=== PATIENT | male | born 1985 | race Caucasian/White ===

== ENCOUNTER 2018-03-15 14:09 | Emergency (ER) | payer MEDICARE, MEDICAID ==
[~2018-03-15] VITALS: Ht 175.3 cm; Wt 120.0 kg
[~2018-03-15 14:09] MED LIST: IMD30T PO; NORCO10T PO; THO10T PO; VALP250C44 PO; ZIPR80CA2 PO
[2018-03-15 14:20] VITALS: BP 156/105
== END 2018-03-15 14:59 | disposition home or self-care (01) ==
LOC: ER 14:10
DX: M79.605 Pain in left leg (principal); M79.604 Pain in right leg; G89.29 Other chronic pain; Z56.0 Unemployment, unspecified; Z88.0 Allergy status to penicillin; Z79.899 Other long term (current) drug therapy
CPT/HCPCS: 99281

== ENCOUNTER 2018-09-21 18:43 | Emergency (ER) | payer MEDICARE, MEDICAID ==
[~2018-09-21] VITALS: Ht 175.3 cm; Wt 112.3 kg
[2018-09-21] MEDS ORDERED: LORazepam 1 MG tablet PO ONE (19:25)
[2018-09-21] MEDS ORDERED: DIVA-76 PO (19:44)
[2018-09-21] MEDS ORDERED: OMEP20TA23 PO (19:44)
[2018-09-21 19:45] LABS: BASOPHILS # (AUTO) 0.1 X10'3 (0-0.2); BASOPHILS % (AUTO) 0.7 % (0-1); EOSINOPHILS # (AUTO) 0.1 X10'3 (0-0.9); HEMATOCRIT 44.7 % (42.0-52.0); HEMOGLOBIN 14.6 g/dl (14.0-17.9); LYMPHOCYTES % (AUTO) 28.1 % (21-51); MEAN CORPUSCULAR HEMOGLOBIN 27.1 PG (27.0-31.0); MEAN CORPUSCULAR HGB CONC 32.7 % (33.0-36.5); MEAN CORPUSCULAR VOLUME 82.9 FL (78-98); MEAN PLATELET VOLUME 8.2 FL (7.4-10.4); MONOCYTES # (AUTO) 0.9 X10'3 (0-0.9); MONOCYTES % (AUTO) 8.4 % (2-12); NEUTROPHILS # (AUTO) 6.6 X10'3 (1.8-7.7); NEUTROPHILS % (AUTO) 61.8 % (42-75); PLATELET COUNT 273 X10'3 (140-440); RED BLOOD COUNT 5.39 X10'6 (4.70-6.10); RED CELL DISTRIBUTION WIDTH 15.6 % (11.5-14.5); WHITE BLOOD COUNT 10.8 X10'3 (4.5-11.0)
[2018-09-21] MEDS ORDERED: PROP60CA6 PO (19:46)
[2018-09-21] MEDS ORDERED: LISI5TAB PO (19:46)
[2018-09-21] MEDS ORDERED: LORA-269 PO (19:51)
[2018-09-21] MEDS ORDERED: LURA80TA3 PO (19:51)
[2018-09-21] MEDS ORDERED: ASPI81TA52 PO (19:51)
[2018-09-21] MEDS ORDERED: ALPR1TAB2 PO (19:51)
[2018-09-21 20:01] LABS: ALANINE AMINOTRANSFERASE 12 U/L (12-78); ALBUMIN 3.7 G/DL (3.4-5.0); ALBUMIN/GLOBULIN RATIO 1.1 (1.1-1.5); ALKALINE PHOSPHATASE 63 IU/L (46-116); ANION GAP 10 (8-16); ASPARTATE AMINO TRANSFERASE 11 U/L (10-37); BILIRUBIN,TOTAL 0.3 MG/DL (0.1-1.0); BLOOD UREA NITROGEN 10 MG/DL (7-18); BUN/CREATININE RATIO 8.8 (5.4-32.0); CALCIUM 8.8 MG/DL (8.5-10.1); CHLORIDE 105 MMOL/L (99-107); CREATININE 1.13 MG/DL (0.60-1.10); GLUCOSE 112 MG/DL (70-104); POTASSIUM 4.1 MMOL/L (3.5-5.1); SODIUM 141 MMOL/L (135-145); TOTAL CARBON DIOXIDE 26.1 MMOL/L (24-32); TOTAL PROTEIN 7.1 G/DL (6.4-8.2); eGFR 76 ML/MIN
[2018-09-21 20:05] LABS: URINE AMPHETAMINE SCREEN NEGATIVE (Neg); URINE BARBITUATE SCREEN NEGATIVE (Neg); URINE BENZODIAZEPINES SCREEN POSITIVE (Neg); URINE CANNABINOID SCREEN POSITIVE (Neg); URINE COCAINE SCREEN NEGATIVE (Neg); URINE METHADONE SCREEN NEGATIVE (Neg); URINE OPIATE SCREEN NEGATIVE (Neg); URINE PHENCYCLIDINE SCREEN NEGATIVE (Neg)
[2018-09-21 20:06] LABS: ETHANOL < 0.010 GM/DL (0.0-0.010)
[2018-09-21 20:25] LABS: ACETAMINOPHEN < 2.0 UG/ML (10-30)
[2018-09-22] MEDS ORDERED: nicotine 21mg patch - 24 hr TD ONE (00:40)
[2018-09-22] MEDS ORDERED: ziprasidone IM 20mg inj **IM only IM ONE (00:40)
[2018-09-22] MEDS ORDERED: pantoprazole 40mg Tablet.DR PO SCH (07:45)
[2018-09-22] MEDS ORDERED: divalproex sodium 500mg tablet.DR PO SCH (08:00)
[2018-09-22] MEDS ORDERED: propranolol LA 60 MG cap.SA.24H PO SCH (08:00)
[2018-09-22] MEDS ORDERED: aspirin 81mg tablet.DR PO SCH (08:00)
[2018-09-22] MEDS ORDERED: lisinopril 5mg tablet PO SCH (08:00)
[2018-09-22] MEDS ORDERED: LORazepam 1 MG tablet PO SCH (08:00)
[2018-09-22] MEDS: ALPRAZolam 0.5mg tablet PO PRN ×2 (08:50→15:58)
[2018-09-22] MEDS ORDERED: DOCU250C4 PO (12:04)
[2018-09-22] MEDS ORDERED: PALI234D IM (12:10)
[2018-09-22 13:54] VITALS: BP 148/85
[2018-09-22] MEDS ORDERED: paliperidone palmitate inj 234 MG/1.5 ML SYRINGE IM SCH (14:30)
[2018-09-22] MEDS ORDERED: docusate sod 250mg capsule PO SCH (20:00)
[2018-09-22] MEDS ORDERED: lurasidone 20mg tablet PO SCH (21:00)
== END 2018-09-22 16:17 ==
LOC: ER 18:44
DX: F20.9 Schizophrenia, unspecified (principal); F31.9 Bipolar disorder, unspecified; G89.29 Other chronic pain; F41.9 Anxiety disorder, unspecified; Z56.0 Unemployment, unspecified; Z88.0 Allergy status to penicillin; Z79.899 Other long term (current) drug therapy; Z79.82 Long term (current) use of aspirin
CPT/HCPCS: 36415; 80053; 80164; 80305; 80320; 80329; 84443; 85025; 93005; 99285

== ENCOUNTER 2019-05-13 22:12 | Emergency (ER) | payer MEDICARE, MEDICAID ==
[~2019-05-13] VITALS: Ht 175.3 cm; Wt 105.5 kg
[~2019-05-13 22:12] MED LIST changes: +ALPR1TAB2 PO; +ASPI81TA52 PO; +DIVA-76 PO; +DOCU-329 PO; -IMD30T PO; +LURA80TA3 PO; -NORCO10T PO; +OMEP20TA23 PO; +PALI234D IM; +PROP60CA37 PO; -THO10T PO; -VALP250C44 PO; -ZIPR80CA2 PO
[2019-05-13 22:19] VITALS: BP 151/100
[2019-05-14] MEDS ORDERED: TETanus/Pertussis (Acell)/Diphther VAC/PF (Tdap-Adult) 0.5ml syringe IM ONE (00:35)
== END 2019-05-14 01:01 | disposition home or self-care (01) ==
LOC: ER 22:13
DX: S02.2XXA Fracture of nasal bones, initial encounter for closed fracture (principal); G89.29 Other chronic pain; F31.9 Bipolar disorder, unspecified; F20.9 Schizophrenia, unspecified; F12.90 Cannabis use, unspecified, uncomplicated; Z88.0 Allergy status to penicillin; Z79.82 Long term (current) use of aspirin; Z79.899 Other long term (current) drug therapy; Z56.0 Unemployment, unspecified; W21.05XA Struck by basketball, initial encounter; Y93.67 Activity, basketball; Y92.89 Other specified places as the place of occurrence of the external cause; Y99.8 Other external cause status
CPT/HCPCS: 99281

== ENCOUNTER 2019-07-31 11:50 | Emergency (ER) | payer MEDICARE, MEDICAID ==
[~2019-07-31] VITALS: Ht 175.3 cm; Wt 107.0 kg
--- NOTE | 2019-07-31 12:02 | NUR ---
AMBULATORY TO ER #2 WITH C/O ABD PAIN X 3 DAYS AND BLOOD IN STOOL. STATES HX ABDOMINAL PAIN AND CHANGES IN STOOL PATTERN FOR THE PAST FEW MONTHS, WITH CONSTIPATION. WORRIED THAT HE MAY HAVE AN ULCER. HX SENSITIVE STOMACH.
[2019-07-31 13:00] LABS: BASOPHILS % (AUTO) 0.5 % (0-1); EOSINOPHILS # (AUTO) 0.1 X10'3 (0-0.9); EOSINOPHILS % (AUTO) 0.9 % (0-6); HEMATOCRIT 44.1 % (42.0-52.0); HEMOGLOBIN 15.1 g/dl (14.0-17.9); LYMPHOCYTES # (AUTO) 2.4 X10'3 (1.1-4.8); LYMPHOCYTES % (AUTO) 27.1 % (21-51); MEAN CORPUSCULAR HEMOGLOBIN 29.7 PG (27.0-31.0); MEAN CORPUSCULAR HGB CONC 34.2 g/dL (33.0-36.5); MEAN CORPUSCULAR VOLUME 86.8 FL (78-98); MEAN PLATELET VOLUME 8.4 FL (7.4-10.4); MONOCYTES # (AUTO) 0.8 X10'3 (0-0.9); MONOCYTES % (AUTO) 8.5 % (2-12); NEUTROPHILS # (AUTO) 5.6 X10'3 (1.8-7.7); PLATELET COUNT 199 X10'3 (140-440); RED BLOOD COUNT 5.08 X10'6 (4.70-6.10); RED CELL DISTRIBUTION WIDTH 14.6 % (11.5-14.5); WHITE BLOOD COUNT 8.9 X10'3 (4.5-11.0)
[2019-07-31 13:24] LABS: ALANINE AMINOTRANSFERASE 17 U/L (12-78); ALBUMIN 3.7 G/DL (3.4-5.0); ALBUMIN/GLOBULIN RATIO 1.1 (1.1-1.5); ALKALINE PHOSPHATASE 56 IU/L (46-116); ANION GAP 11 (8-16); ASPARTATE AMINO TRANSFERASE 6 U/L (10-37); BILIRUBIN,TOTAL 0.3 MG/DL (0.1-1.0); BLOOD UREA NITROGEN 7 MG/DL (7-18); BUN/CREATININE RATIO 7.5 (5.4-32.0); CALCIUM 8.6 MG/DL (8.5-10.1); CHLORIDE 107 MMOL/L (99-107); CREATININE 0.93 MG/DL (0.60-1.10); GLUCOSE 93 MG/DL (70-104); POTASSIUM 4.1 MMOL/L (3.5-5.1); SODIUM 142 MMOL/L (135-145); TOTAL CARBON DIOXIDE 24.2 MMOL/L (24-32); TOTAL PROTEIN 7.1 G/DL (6.4-8.2); eGFR > 90 ML/MIN
[2019-07-31] MEDS ORDERED: POLY17PO10 PO (13:31)
[2019-07-31 13:41] VITALS: BP 141/48
== END 2019-07-31 13:43 | disposition home or self-care (01) ==
LOC: ER 11:51
DX: K92.1 Melena (principal); G89.29 Other chronic pain; F31.9 Bipolar disorder, unspecified; F20.9 Schizophrenia, unspecified; F12.90 Cannabis use, unspecified, uncomplicated; Z56.0 Unemployment, unspecified; Z88.0 Allergy status to penicillin; Z79.82 Long term (current) use of aspirin; Z79.899 Other long term (current) drug therapy
CPT/HCPCS: 36415; 80053; 85025; 99283

== ENCOUNTER 2020-04-07 16:35 | Emergency (ER) | payer MEDICARE, MEDICAID ==
[~2020-04-07] VITALS: Ht 175.3 cm; Wt 108.0 kg
[2020-04-07 17:01] VITALS: BP 133/91
[2020-04-07] MEDS ORDERED: AZIT-72 PO (17:35)
== END 2020-04-07 17:57 | disposition home or self-care (01) ==
LOC: ER 16:36
DX: R59.0 Localized enlarged lymph nodes (principal); G89.29 Other chronic pain; F31.9 Bipolar disorder, unspecified; F20.9 Schizophrenia, unspecified; F17.200 Nicotine dependence, unspecified, uncomplicated; F12.90 Cannabis use, unspecified, uncomplicated; Z72.89 Other problems related to lifestyle; Z86.69 Personal history of other diseases of the nervous system and sense organs; Z56.0 Unemployment, unspecified; Z88.0 Allergy status to penicillin; Z79.2 Long term (current) use of antibiotics; Z79.82 Long term (current) use of aspirin; Z79.899 Other long term (current) drug therapy
CPT/HCPCS: 99283

== ENCOUNTER 2020-05-05 10:55 | Emergency (ER) | payer MEDICARE, MEDICAID ==
[~2020-05-05] VITALS: Ht 175.3 cm; Wt 102.6 kg
--- NOTE | 2020-05-05 11:09 | NUR ---
Pt brought in as a straight back from triage. He is mumbling to himself. He lives with his mother at [facility]. His mother and step mom briought him in. He sees Michelle White at [facility]. He reports not taking all of huis medications as prescribed recently. Pt hurt his wrist by hitting his hand on a fence recently. Pt is unable to stay on topic in a converstation. He seems to be responding to internal stimuli due to carrying on a constant conversation with himself. He claims to speak to animals and understand their language.
[2020-05-05 12:05] LABS: CLARITY,URINE CLEAR (Clear); COLOR,URINE YELLOW (Yellow); GLUCOSE, URINE NEGATIVE (Neg); KETONES,URINE 15 mg/dl (Neg); LEUKOCYTE ESTERASE ,URINE NEGATIVE (Neg); NITRITES, URINE NEGATIVE (Neg); OCCULT BLOOD,URINE NEGATIVE (Neg); PROTEIN,URINE TRACE mg/dl (Neg)
[2020-05-05] MEDS ORDERED: ALPRAZolam 0.5mg tablet PO PRN (12:05)
[2020-05-05 12:09] LABS: AMORPHOUS URATES 1+; BACTERIA,URINE NONE SEEN /HPF (Neg); MUCUS STRANDS FEW /LPF (Neg); RBC,URINE 0-2 /HPF (0-2); SQUAMOUS EPITHELIAL CELL,UR NONE SEEN /LPF (FEW); UA COLLECTION TYPE NON-SPECIFIED; WBC,URINE 0-4 /HPF (0-4)
--- NOTE | 2020-05-05 12:14 | NUR ---
Lab at bedside
[2020-05-05] MEDS: propranolol LA 60 MG cap.SA.24H PO SCH (12:16)
[2020-05-05 12:24] LABS: BASOPHILS % (AUTO) 0.5 % (0-1); EOSINOPHILS % (AUTO) 0.2 % (0-6); HEMATOCRIT 42.5 % (42.0-52.0); HEMOGLOBIN 14.3 g/dl (14.0-17.9); LYMPHOCYTES # (AUTO) 2.5 X10'3 (1.1-4.8); LYMPHOCYTES % (AUTO) 26.9 % (21-51); MEAN CORPUSCULAR HEMOGLOBIN 29.8 PG (27.0-31.0); MEAN CORPUSCULAR HGB CONC 33.7 g/dL (33.0-36.5); MEAN CORPUSCULAR VOLUME 88.4 FL (78-98); MEAN PLATELET VOLUME 8.4 FL (7.4-10.4); MONOCYTES # (AUTO) 0.8 X10'3 (0-0.9); MONOCYTES % (AUTO) 8.6 % (2-12); NEUTROPHILS # (AUTO) 5.9 X10'3 (1.8-7.7); NEUTROPHILS % (AUTO) 63.8 % (42-75); PLATELET COUNT 222 X10'3 (140-440); RED CELL DISTRIBUTION WIDTH 14.7 % (11.5-14.5); WHITE BLOOD COUNT 9.3 X10'3 (4.5-11.0)
[2020-05-05 12:27] LABS: URINE AMPHETAMINE SCREEN NEGATIVE (Neg); URINE BARBITUATE SCREEN NEGATIVE (Neg); URINE BENZODIAZEPINES SCREEN POSITIVE (Neg); URINE CANNABINOID SCREEN POSITIVE (Neg); URINE COCAINE SCREEN NEGATIVE (Neg); URINE METHADONE SCREEN NEGATIVE (Neg); URINE OPIATE SCREEN NEGATIVE (Neg); URINE PHENCYCLIDINE SCREEN NEGATIVE (Neg)
[2020-05-05 12:38] LABS: ALANINE AMINOTRANSFERASE 38 U/L (12-78); ALBUMIN 4.3 G/DL (3.4-5.0); ALBUMIN/GLOBULIN RATIO 1.2 (1.1-1.5); ALKALINE PHOSPHATASE 60 IU/L (46-116); ANION GAP 11 (8-16); ASPARTATE AMINO TRANSFERASE 59 U/L (10-37); BILIRUBIN,TOTAL 0.7 MG/DL (0.1-1.0); BLOOD UREA NITROGEN 16 MG/DL (7-18); CALCIUM 9.1 MG/DL (8.5-10.1); CHLORIDE 105 MMOL/L (99-107); CREATININE 1.07 MG/DL (0.60-1.10); GLUCOSE 101 MG/DL (70-104); POTASSIUM 4.2 MMOL/L (3.5-5.1); SODIUM 140 MMOL/L (135-145); TOTAL CARBON DIOXIDE 24.1 MMOL/L (24-32); TOTAL PROTEIN 7.8 G/DL (6.4-8.2); eGFR 80 ML/MIN
--- NOTE | 2020-05-05 12:48 | NUR ---
Pt very anxious as evidened by rapid, pressured, loud speech. Pt given xanax and he said "Thank you for the clam down pills."
[2020-05-05 12:51] LABS: ETHANOL < 0.010 GM/DL (0.0-0.010)
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
--- NOTE | 2020-05-05 13:34 | NUR ---
Antoinette stephen in [facility] - 05/05/20 at 1342 by MARTIN CLIENT OFF THE UNIT WITH [employer]
--- NOTE | 2020-05-05 14:42 | NUR ---
Paged for ortho orders for client
--- NOTE | 2020-05-05 16:07 | NUR ---
Patient talking nonstop, rapid, presurred, loud speech. Patient stating they should outlaw applesauce. "If people can't eat apples because of their teeth it is not fair to smash apples."
--- NOTE | 2020-05-05 16:34 | NUR ---
pt mother called regarding update ,notified he is still in overflow ,pt mother no [phone].
--- NOTE | 2020-05-05 17:18 | NUR ---
Pt quietly talking to himself nonstop
[2020-05-05 17:57] VITALS: BP 134/87
--- NOTE | 2020-05-05 18:12 | NUR ---
Paged for ortho orders
[2020-05-05] MEDS ORDERED: OLANZapine 5mg rapidly disint. tablet PO ONE (19:25)
[2020-05-05] MEDS ORDERED: OLANZapine **IM** 10 mg inj. IM ONE ×2 (19:31→19:40)
--- NOTE | 2020-05-05 19:39 | NUR ---
Pt. continues to respond to internal stimuli, making delusional hyperspiritual statements about god saving him and becoming a preacher to the world. He is also fearing being sent to [place]. Pt. is hypervigilant and looking at posters and numbers on the preciado, claiming that he's in the "wrong place." He is also demonstrating flight of ideas, asking for a audit intern or to be taken to half-way. When asked if he requires medication to calm him down, he started to become argumentative and speaking very loudly. ER MD is aware of pt being psychotic. MD was updated on current escalated state and order received to change ordered zyprexa SL to IM. Security at bedside right now to ensure staff and other pt's safety. IM medication succesfully administered with pt's cooperation.
[2020-05-05] MEDS ORDERED: acetaminophen 325mg tablet PO PRN ×2 (19:45→19:50)
[2020-05-05] MEDS ORDERED: magnesium hydroxide 30ml (MOM) UD suspension PO PRN (19:50)
[2020-05-05] MEDS ORDERED: docusate sod 250mg capsule PO SCH (20:00)
[2020-05-05] MEDS ORDERED: divalproex sodium 500mg tablet.DR PO SCH (20:00)
[2020-05-05] MEDS ORDERED: lurasidone 20mg tablet PO SCH (21:00)
--- NOTE | 2020-05-05 21:02 | NUR ---
emergency technician at bedside applying ordered splint to L hand. Pt. is cooperative and pleasant.
[2020-05-06] MEDS ORDERED: pantoprazole 40mg Tablet.DR PO SCH (08:00)
[2020-05-08] MEDS ORDERED: paliperidone palmitate inj 234 MG/1.5 ML SYRINGE IM SCH (08:00)
== END 2020-05-05 20:14 ==
LOC: ER 10:57
DX: F41.9 Anxiety disorder, unspecified (principal); G89.29 Other chronic pain; F31.9 Bipolar disorder, unspecified; F20.9 Schizophrenia, unspecified; F12.90 Cannabis use, unspecified, uncomplicated; Z86.69 Personal history of other diseases of the nervous system and sense organs; Z72.89 Other problems related to lifestyle; Z56.0 Unemployment, unspecified; Z88.0 Allergy status to penicillin; Z79.82 Long term (current) use of aspirin; Z79.899 Other long term (current) drug therapy
CPT/HCPCS: 36415; 73130; 80053; 80305; 80320; 81001; 84443; 85025; 96372; 99284; J3490

== ENCOUNTER 2020-06-03 19:00 | Emergency (ER) | payer MEDICARE, MEDICAID ==
[~2020-06-03] VITALS: Ht 175.3 cm; Wt 108.6 kg
[~2020-06-03 19:00] MED LIST changes: +CLOZ100T13 PO; -DOCU-329 PO; +DOCU250C96 PO; -LURA80TA3 PO; +OLAN20TA5 PO; -OMEP20TA23 PO; -PALI234D IM; +PANT40TA4 PO; +TIZA4CAP PO; +[UNRECOGNIZED DRUG - CODE] PO
[2020-06-03] MEDS ORDERED: LORazepam 1 MG tablet PO ONE (19:45)
--- NOTE | 2020-06-03 19:50 | NUR ---
PT REPORTS THAT HE DOES NOT WANT TO CAUSE HIMSELF HARM OR OTHERS HARM STAES HE IS ONLY HAVING AUDITORY HALLUSINATIONS AND THE VOICES ARE HIMSELF . HE SAYS ITS HIS OWN VOCIE TALKING TO HIMSELF , ASKING HIM TO WAK AND TAKING TO HIM ABOUT GOD AND RELEGION . PT DENIES TAKING ANY MEDICATION ASIDE FROM A SUPPLEMENT HE HAS BROUGHT WITH HIM CALLED " KRAVE " Maribell Wilder
--- NOTE | 2020-06-03 20:01 | NUR ---
PT CHANGED INTO [place]
[2020-06-03 20:16] LABS: URINE AMPHETAMINE SCREEN NEGATIVE (Neg); URINE BARBITUATE SCREEN NEGATIVE (Neg); URINE BENZODIAZEPINES SCREEN POSITIVE (Neg); URINE CANNABINOID SCREEN POSITIVE (Neg); URINE COCAINE SCREEN NEGATIVE (Neg); URINE METHADONE SCREEN NEGATIVE (Neg); URINE OPIATE SCREEN NEGATIVE (Neg); URINE PHENCYCLIDINE SCREEN NEGATIVE (Neg)
[2020-06-03 20:23] LABS: BASOPHILS % (AUTO) 0.3 % (0-1); EOSINOPHILS % (AUTO) 0.3 % (0-6); HEMATOCRIT 44.1 % (42.0-52.0); HEMOGLOBIN 14.6 g/dl (14.0-17.9); LYMPHOCYTES % (AUTO) 24.6 % (21-51); MEAN CORPUSCULAR HEMOGLOBIN 29.3 PG (27.0-31.0); MEAN CORPUSCULAR HGB CONC 33.2 g/dL (33.0-36.5); MEAN CORPUSCULAR VOLUME 88.4 FL (78-98); MEAN PLATELET VOLUME 9.4 FL (7.4-10.4); MONOCYTES # (AUTO) 1.7 X10'3 (0-0.9); MONOCYTES % (AUTO) 14.3 % (2-12); NEUTROPHILS # (AUTO) 7.4 X10'3 (1.8-7.7); NEUTROPHILS % (AUTO) 60.5 % (42-75); PLATELET COUNT 222 X10'3 (140-440); RED BLOOD COUNT 4.99 X10'6 (4.70-6.10); RED CELL DISTRIBUTION WIDTH 14.3 % (11.5-14.5); WHITE BLOOD COUNT 12.2 X10'3 (4.5-11.0)
[2020-06-03 20:38] LABS: ALANINE AMINOTRANSFERASE 42 U/L (12-78); ALBUMIN 4.4 G/DL (3.4-5.0); ALBUMIN/GLOBULIN RATIO 1.3 (1.1-1.5); ALKALINE PHOSPHATASE 64 IU/L (46-116); ANION GAP 14 (8-16); ASPARTATE AMINO TRANSFERASE 97 U/L (10-37); BILIRUBIN,TOTAL 0.4 MG/DL (0.1-1.0); BLOOD UREA NITROGEN 17 MG/DL (7-18); BUN/CREATININE RATIO 8.8 (5.4-32.0); CALCIUM 9.6 MG/DL (8.5-10.1); CHLORIDE 100 MMOL/L (99-107); CREATININE 1.94 MG/DL (0.60-1.10); GLUCOSE 95 MG/DL (70-104); POTASSIUM 3.2 MMOL/L (3.5-5.1); SODIUM 137 MMOL/L (135-145); TOTAL CARBON DIOXIDE 23.2 MMOL/L (24-32); TOTAL PROTEIN 7.8 G/DL (6.4-8.2); eGFR 40 ML/MIN
--- NOTE | 2020-06-03 20:40 | NUR ---
PT MOVED TO ROOM 23 STEADY GAIT
[2020-06-03 20:43] LABS: ETHANOL < 0.010 GM/DL (0.0-0.010)
--- NOTE | 2020-06-03 20:43 | NUR ---
pt was moved from room 9 in the main ER to room 23 in overflow, by two RN's no issues during transport
[2020-06-03] MEDS ORDERED: normal saline 1000ML IV soln IVB ONE (20:50)
--- NOTE | 2020-06-03 21:01 | NUR ---
moved to overflow bed 23 from main er bed 9. report received from cipriano hopkins.
--- NOTE | 2020-06-03 21:27 | NUR ---
PIV PLACED, 1ST OF 2 LITERS BOLUS STARTED, CKMB ELEVATED. PT WAS COOPERATIVE WITH IV PLACEMENT. HE IS RESPONDING TO INTERNAL STIMULI AND TALKING NONSTOP QUIETLY TO HIMSELF. ANSWERING MY QUESTIONS APPROPRIATELY: WHERE DO YOU LIVE, "SUDHIR...IN A MOBILE HOME ...ON MY MOMS PROPERTY". STATES HE HAS A KITTEN NAMED "ULISES" AND HIS MOTHER IS TAKING CARE OF IT. HAVE YOU BEEN HERE BEFORE, "YES". GIVEN JUICE AND SANDWICH AND CRACKERS AND IS EATING NOW.
--- NOTE | 2020-06-03 21:39 | NUR ---
LUZMA BHATTI UPDATED OF PTS K 3.2 AND THAT HE IS RESTLESS AND TALKLING BIZZARLY TO HIMSELF. VERBAL RECEIVED FOR KDUR 40 MEQ PO AND CLOZAPINE 300 MG X1NOW. UNABLE TO DO MED REC PT DOES NOT KNOW HIS CURRENT HOME MEDS. LUZMA BHATTI REPORTS THAT A NOTE FROM DR. COLLIER FROM A FEW MONTHS AGO WHEN HE WAS ADMITTED HE WAS TAKING THIS DOSE OF CLOZAPINE.
[2020-06-03] MEDS ORDERED: potassium Cl 20 mEq SR tablet PO STA (21:41)
[2020-06-03] MEDS ORDERED: OLANZapine 5mg rapidly disint. tablet PO ONE (22:20)
--- NOTE | 2020-06-03 23:07 | NUR ---
Breaking primary RN. Pt. resting quietly, no signs of distress, respirations even and unlabored.
--- NOTE | 2020-06-03 23:14 | NUR ---
2 liter bolus infused. given kdur 40 meq and zypreza 10 mg. lab redraw just collected. Lights off and warm blanket given. Pt lying on right side with blanket to his shoulders. RR f14 and unlabored. Sitter and RN within view of Pt aat.
[2020-06-03 23:20] LABS: ALBUMIN 3.4 G/DL (3.4-5.0); ANION GAP 10 (8-16); BLOOD UREA NITROGEN 17 MG/DL (7-18); BUN/CREATININE RATIO 12.4 (5.4-32.0); CALCIUM 8.1 MG/DL (8.5-10.1); CHLORIDE 106 MMOL/L (99-107); CREATININE 1.37 MG/DL (0.60-1.10); GLUCOSE 128 MG/DL (70-104); POTASSIUM 3.1 MMOL/L (3.5-5.1); SODIUM 140 MMOL/L (135-145); TOTAL CARBON DIOXIDE 23.8 MMOL/L (24-32); eGFR 60 ML/MIN
--- NOTE | 2020-06-04 00:54 | NUR ---
Pt remains asleep. Currently lying on his left side with blankets covering to his shoulders. RR 14 and unlabored. Sitter and RN within view of pt aat. Pt did eat a 2nd sandwich and drink another cup of orange juice a while ago. Bedside table cleaned of trash.
--- NOTE | 2020-06-04 02:31 | NUR ---
pt remains asleep, lying on his back with blankets to his waist. Sitter and RN within view of Pt aat.
--- NOTE | 2020-06-04 04:20 | NUR ---
Pt remains asleep, lying on his right side with blankets covering his shoulders. RR 14 and unlabored. Sitter and RN within view of Pt AAT.
--- NOTE | 2020-06-04 07:21 | NUR ---
Resting in bed with eyes closed
[2020-06-04] MEDS ORDERED: potassium Cl 20 mEq SR tablet PO SCH (08:00)
--- NOTE | 2020-06-04 09:34 | NUR ---
Breaking Primary RN, pt is being seen by [facility] staff, calm
[2020-06-04] MEDS ORDERED: PANT-47 PO (10:26)
[2020-06-04] MEDS ORDERED: DOCU250C96 PO (10:26)
[2020-06-04] MEDS ORDERED: OLAN20TA3 PO (10:26)
[2020-06-04] MEDS ORDERED: CLOZ100T21 PO ×2 (10:26)
[2020-06-04] MEDS ORDERED: PROP60CA37 PO (10:26)
[2020-06-04] MEDS ORDERED: TIZA4CAP PO (10:26)
[2020-06-04] MEDS ORDERED: ASPI-1265 PO (10:26)
[2020-06-04] MEDS ORDERED: ALPR1TAB2 PO (10:26)
[2020-06-04] MEDS ORDERED: DIVA500T2 PO (10:26)
[2020-06-04] MEDS: clozapine 100mg tablet PO SCH ×2 (11:17→21:05)
[2020-06-04] MEDS: propranolol LA 60 MG cap.SA.24H PO SCH (11:18)
[2020-06-04] MEDS: pantoprazole 40mg Tablet.DR PO SCH (11:46)
[2020-06-04] MEDS: olanzapine 10mg tablet PO PRN (11:46)
[2020-06-04] MEDS: aspirin 81mg tab.chew PO SCH (11:47)
[2020-06-04] MEDS: ALPRAZolam 0.5mg tablet PO PRN ×2 (11:47→20:34)
[2020-06-04] MEDS: tizanidine 4mg tablet PO PRN (17:14)
--- NOTE | 2020-06-04 17:15 | NUR ---
Break RN; patient states he has muscle cramps in stomach, medicated PRN (see EMAR).
--- NOTE | 2020-06-04 18:39 | NUR ---
ASSUMED CARE OF PATIENT SITTING UPRIGHT IN BED EATING DINNER . PT DNEIES ANY ABD DISCOMFORT AT THIS TIME AND IS COROPORATIVE. PT IN THE DIRECT LINE OF SIGHT WITH NURSING STAFF . WILL CONTINUE TO REASSESS.
--- NOTE | 2020-06-04 18:53 | NUR ---
PT UP OUT OF BED TO BATHROOM . AMBULATED WITH STEADY GATE .
--- NOTE | 2020-06-04 19:18 | NUR ---
PT ASKED IF HE COULD HAVE SOME READING MATERIAL TO HELP HIM . STATES HE IS TALKING TO HIMSELF AND SOMETHING TO LOOK AT OR READ WOULD BE HELPFUL .PT GIVEN A NATIONAL MOUNUMENT BACK . PLAN OF CARE UPDATED . PT VERBLAIZES NO OTHER NEEDS AT THIS TIME
--- NOTE | 2020-06-04 19:41 | NUR ---
PT RESTING ON HIS RIGHT SIDE . RESP EVEN AND UNLABORED WUILL CONTINUE TO MONITOR AND REASSESS
--- NOTE | 2020-06-04 20:28 | NUR ---
PT TALKING TO HIMSELF AND MOVING HIS ARMS AROUND LIKE HE IS HALLUSINATING. ASKED THE PATIENT IF HE WAS ALRIGHT AND HE REPLIED " YES , I AM SAFE, I AM HERE IN THE HOSPITAL " ADMINISTERED PATIENTS 2000 MEDICATION AND ADVISED PATIENT TO GET READY FOR BED
[2020-06-04] MEDS: divalproex sodium 500mg tablet.DR PO SCH (20:34)
[2020-06-04] MEDS: docusate sod 250mg capsule PO SCH (20:34)
--- NOTE | 2020-06-04 21:38 | NUR ---
PT SLEEPING ON LEFT SIDE RESP EVEN AND UNLABORED IN THE DIRECT LINE OF SIGHT OF NURSING STAFF. WILL CONTINUE TO MONITOR AND REASSESS
--- NOTE | 2020-06-04 22:30 | NUR ---
PT SLEEPING PEACFULLY ON HIS LEFT SIDE . RESP EVEN AND UNLABORED. PT IN THE DIRECT LINEOF SIGHT WITH NURSING STAFF. WILL CONTINUE TO MONIOTR AND REASSESS NEEDED
--- NOTE | 2020-06-04 23:55 | NUR ---
Breaking primary RN, pt. resting quietly, no signs of distress, respirations even and unlabored.
--- NOTE | 2020-06-05 01:00 | NUR ---
PT SLEEPING PEACFULLY SUSPINE . RESP EVEN AND UNLABORED. PT IN THE DIRECT LINE OF SIGHT OF NURSING STAFF. WILL CONTINUE TO MONITOR R AND REASSESS NEEDED
--- NOTE | 2020-06-05 02:00 | NUR ---
PT SLEEPING PEACFULLY SUPINE . RESP EVEN AND UNLABORED. PT IN THE DIRECT LINE OF SIGHT OF NURSING STAFF. WILL CONTINUE TO MONITOR AND REASSESS NEEDED
[2020-06-05] MEDS: tizanidine 4mg tablet PO PRN ×2 (03:57→14:45)
--- NOTE | 2020-06-05 04:00 | NUR ---
PT AWAKE AND OUT OF BED TO BATHROOM . STEADY GAIT . REPORTS HE IS HUNGRY , GAVE GRAMCRACKERS. PT REPORTS HE IS HAVING MUSCLE DISCOMFORT BEFORE . WOULD LIKE TO TAKE SOMETHING FOR IT . MEDICATED PT WITH 4MG OF ZANALEX ORDERED
--- NOTE | 2020-06-05 04:53 | NUR ---
PT SLEEPING ON HIS RIGHT SIDE IN BED . HOB ELEVATED 30 DEGREES RESP EVEN AND UNLABORED . PT CONTENT AT THIS TIME
--- NOTE | 2020-06-05 05:58 | NUR ---
PT AUROSABLE WITH VS. PLAN OF CARE UPDATED . PLEASANT FOLLOWING INSTRUCTIONS . POLITE .
--- NOTE | 2020-06-05 06:44 | NUR ---
Patient is sleeping on his right side. Respirations are even and nonlabored.
--- NOTE | 2020-06-05 06:45 | NUR ---
Patient laying in bed sleeping. Respirations are even and nonlabored.
[2020-06-05] MEDS: clozapine 100mg tablet PO SCH ×2 (08:37→20:16)
[2020-06-05] MEDS: pantoprazole 40mg Tablet.DR PO SCH (08:38)
[2020-06-05] MEDS: aspirin 81mg tab.chew PO SCH (08:38)
[2020-06-05] MEDS: propranolol LA 60 MG cap.SA.24H PO SCH (08:39)
[2020-06-05] MEDS: divalproex sodium 500mg tablet.DR PO SCH ×2 (08:39→20:16)
[2020-06-05] MEDS: docusate sod 250mg capsule PO SCH ×2 (08:46→20:16)
--- NOTE | 2020-06-05 09:22 | NUR ---
Patient took all medications without incident, ate breakfast and then back to sleep.
--- NOTE | 2020-06-05 11:03 | NUR ---
Patient up to the bathroom
--- NOTE | 2020-06-05 12:58 | NUR ---
Patient is eating lunch. No behavioral problems this shift. Pleasant and cooperative.
--- NOTE | 2020-06-05 14:59 | NUR ---
Patient complaining of back pain. Zanaflex given, suggested patient try changing positions and stretching.
[2020-06-05] MEDS: olanzapine 10mg tablet PO PRN (15:44)
--- NOTE | 2020-06-05 16:31 | NUR ---
Patient laying in bed talking to himself, responding to internal stimuli. Awaiting call back from [facility].
--- NOTE | 2020-06-05 16:56 | NUR ---
Patient has been accepted at [facility] and will be picked up by [facility] at 0715 a.m. tomorrow morning.
--- NOTE | 2020-06-05 17:07 | NUR ---
Patient up to the restroom.
[2020-06-05] MEDS: ALPRAZolam 0.5mg tablet PO PRN (17:32)
--- NOTE | 2020-06-05 17:48 | NUR ---
Patient started escalating and becoming agitated, Xanax 1 mg given with good effect.
--- NOTE | 2020-06-05 18:55 | NUR ---
Covid screen faxed to [facility].
--- NOTE | 2020-06-05 19:06 | NUR ---
The patient has been resting on his bed. He is quietly talking to himself but denies that he is having auditory or visual hallucinations. He ate 100% of his dinner. He was polite and cooperative with the nursing assessment. He stated "No one brought me here I walked here. I tried to walk out my anger. I thought if I walked I could walk off my illness so I walked for 3 days" He denies that he is a danger to himself or others. He stated he did not want to return to [place] because he felt it was "evil" He denies phyiscal complaints. He is asking to be re-admitted to [facility] but he has already been accepted at another facility.
--- NOTE | 2020-06-05 21:04 | NUR ---
The patient appears to be sleeping
--- NOTE | 2020-06-05 23:05 | NUR ---
The patient appears to be sleeping
--- NOTE | 2020-06-06 00:50 | NUR ---
The patient appears to be sleeping
--- NOTE | 2020-06-06 03:29 | NUR ---
The patient appears to be sleeping
--- NOTE | 2020-06-06 04:54 | NUR ---
The patient appears to be asleep
--- NOTE | 2020-06-06 06:24 | NUR ---
Patient sleeping, but easily arousable. No s/s of distress noted.
[2020-06-06] MEDS: aspirin 81mg tab.chew PO SCH (07:04)
[2020-06-06] MEDS: ALPRAZolam 0.5mg tablet PO PRN (07:04)
[2020-06-06] MEDS: propranolol LA 60 MG cap.SA.24H PO SCH (07:04)
[2020-06-06] MEDS: divalproex sodium 500mg tablet.DR PO SCH (07:04)
[2020-06-06] MEDS: clozapine 100mg tablet PO SCH (07:04)
[2020-06-06] MEDS: docusate sod 250mg capsule PO SCH (07:04)
[2020-06-06] MEDS: pantoprazole 40mg Tablet.DR PO SCH (07:06)
--- NOTE | 2020-06-06 07:18 | NUR ---
Patient took a.m. medications, is getting dressed. Discharge instructions given to patient. Pt. is provided with snack for breakfast. Pt. called mother and explained that he was going to [facility]. Pt. is discharged in stable condition.
[2020-06-06 07:25] VITALS: BP 109/57
== END 2020-06-06 07:28 | disposition home or self-care (01) ==
LOC: ER 19:01
DX: N17.9 Acute kidney failure, unspecified (principal); F29 Unspecified psychosis not due to a substance or known physiological condition; G89.29 Other chronic pain; F31.9 Bipolar disorder, unspecified; F12.90 Cannabis use, unspecified, uncomplicated; Z56.0 Unemployment, unspecified; Z79.82 Long term (current) use of aspirin; Z79.899 Other long term (current) drug therapy; Z88.0 Allergy status to penicillin
CPT/HCPCS: 36415; 80048; 80053; 80305; 80320; 82553; 85025; 96360; 99285; J7030

== ENCOUNTER 2020-08-03 13:56 | Emergency (ER) | payer MEDICARE, MEDICAID ==
[~2020-08-03] VITALS: Ht 175.3 cm; Wt 98.3 kg
[~2020-08-03 13:56] MED LIST changes: +ASPI-1265 PO; -ASPI81TA52 PO; -CLOZ100T13 PO; +CLOZ100T21 PO; -DIVA-76 PO; +DIVA500T2 PO; +OLAN20TA3 PO; -OLAN20TA5 PO; +PANT-47 PO; -PANT40TA4 PO; -[UNRECOGNIZED DRUG - CODE] PO
--- NOTE | 2020-08-03 14:59 | NUR ---
PATIENT STATES VOICES SOMETIMES TALK FOR ME, AND I NEED TO GET IT FIXED". "I TOOK A SKIN RASH PILL AND IT MADE ME HALLUCINATE, DAYS BEFORE THAT I FELT BAD AND LIKE I WOULD HURT SOMEONE SO I CAME IN HERE".
--- NOTE | 2020-08-03 15:20 | NUR ---
INFORMED PATIENT WE NEED A URINE SAMPLE, PT UNABLE TO PRIOVIDE ONE AT THIS TIME. WILL ATTEMPT AGAIN LATER.
--- NOTE | 2020-08-03 15:23 | NUR ---
PATIENT RESTING ON LEFT SIDE.
[2020-08-03 15:26] LABS: BASOPHILS % (AUTO) 0.4 % (0-1); EOSINOPHILS # (AUTO) 0.1 X10'3 (0-0.9); HEMATOCRIT 42.9 % (42.0-52.0); HEMOGLOBIN 14.2 g/dl (14.0-17.9); LYMPHOCYTES % (AUTO) 26.5 % (21-51); MEAN CORPUSCULAR HEMOGLOBIN 29.4 PG (27.0-31.0); MEAN CORPUSCULAR HGB CONC 33.2 g/dL (33.0-36.5); MEAN CORPUSCULAR VOLUME 88.6 FL (78-98); MEAN PLATELET VOLUME 8.9 FL (7.4-10.4); MONOCYTES # (AUTO) 0.8 X10'3 (0-0.9); MONOCYTES % (AUTO) 10.2 % (2-12); NEUTROPHILS # (AUTO) 4.7 X10'3 (1.8-7.7); NEUTROPHILS % (AUTO) 61.9 % (42-75); PLATELET COUNT 176 X10'3 (140-440); RED BLOOD COUNT 4.84 X10'6 (4.70-6.10); RED CELL DISTRIBUTION WIDTH 14.3 % (11.5-14.5); WHITE BLOOD COUNT 7.6 X10'3 (4.5-11.0)
[2020-08-03 15:41] LABS: ALANINE AMINOTRANSFERASE 12 U/L (12-78); ALBUMIN 3.7 G/DL (3.4-5.0); ALBUMIN/GLOBULIN RATIO 1.2 (1.1-1.5); ALKALINE PHOSPHATASE 44 IU/L (46-116); ANION GAP 6 (8-16); ASPARTATE AMINO TRANSFERASE 5 U/L (10-37); BILIRUBIN,TOTAL 0.4 MG/DL (0.1-1.0); BLOOD UREA NITROGEN 9 MG/DL (7-18); BUN/CREATININE RATIO 10.8 (5.4-32.0); CALCIUM 9.1 MG/DL (8.5-10.1); CHLORIDE 106 MMOL/L (99-107); CREATININE 0.83 MG/DL (0.60-1.10); GLUCOSE 83 MG/DL (70-104); POTASSIUM 4.2 MMOL/L (3.5-5.1); SODIUM 138 MMOL/L (135-145); TOTAL CARBON DIOXIDE 26.1 MMOL/L (24-32); TOTAL PROTEIN 6.9 G/DL (6.4-8.2); eGFR > 90 ML/MIN
[2020-08-03] MEDS ORDERED: LITH150C8 PO (15:43)
[2020-08-03] MEDS ORDERED: QUET25TA PO (15:43)
[2020-08-03 15:52] LABS: ETHANOL < 0.010 GM/DL (0.0-0.010)
[2020-08-03] MEDS ORDERED: CLON-527 PO (16:14)
[2020-08-03] MEDS ORDERED: diphenhydrAMINE 25mg capsule PO ONE (16:20)
[2020-08-03] MEDS ORDERED: LORazepam 1 MG tablet PO ONE (16:20)
[2020-08-03 16:33] LABS: CLARITY,URINE CLEAR (Clear); COLOR,URINE YELLOW (Yellow); GLUCOSE, URINE NEGATIVE (Neg); KETONES,URINE TRACE mg/dl (Neg); LEUKOCYTE ESTERASE ,URINE NEGATIVE (Neg); NITRITES, URINE NEGATIVE (Neg); OCCULT BLOOD,URINE NEGATIVE (Neg); PH,URINE 6.5 (4.8-8.0); PROTEIN,URINE NEGATIVE (Neg); UROBILINOGEN,URINE 0.2 E.U/dL (0.2-1.0)
[2020-08-03 16:34] LABS: UA COLLECTION TYPE URINAL
[2020-08-03] MEDS ORDERED: QUEtiapine 25mg tablet PO PRN (16:55)
[2020-08-03 16:57] LABS: URINE AMPHETAMINE SCREEN NEGATIVE (Neg); URINE BARBITUATE SCREEN NEGATIVE (Neg); URINE BENZODIAZEPINES SCREEN NEGATIVE (Neg); URINE CANNABINOID SCREEN POSITIVE (Neg); URINE COCAINE SCREEN NEGATIVE (Neg); URINE METHADONE SCREEN NEGATIVE (Neg); URINE OPIATE SCREEN NEGATIVE (Neg); URINE PHENCYCLIDINE SCREEN NEGATIVE (Neg)
--- NOTE | 2020-08-03 17:05 | NUR ---
PATIENT IS TALKING OUT LOUD TO HIS "VOICES", HE STATES THEY ARE TELLING ME TO DO BAD THINGS." HE STATES "I DONT WANT TO HURT ANYONE." REDIRECTED TO THINK POSITIVE THOUGHTS AND I LET HIM KNOW HE IS IN CONTROL OF HIS ACTIONS. Addendum: 08/03/20 at 1707 by MAGDALENO RESTING IN BED NOW.
[2020-08-03 17:30] LABS: VALPROATE 88 UG/ML (50-100)
--- NOTE | 2020-08-03 18:01 | NUR ---
SLEEPING LEFT SIDE.
--- NOTE | 2020-08-03 18:39 | NUR ---
Patient is sitting up in bed eating his dinner. Patient eats his salad with his hands. Patient is alert. He states he lives in [place], in a trailer on family property. This field underwriter asked patient about any psychoological history the patient says no. "I just have things inside me that make me do things, like demons." Patient admits to hearing voices that are telling him to do things, he does not elaborate. The patient tells this field underwriter that Satanon appeared to him last night and this morning too. "He wanted to take me to hell." The patient does not know how long he has been in [place]? The patient exhibits a flat affect, he has quiet speech, he speeks slowley. Patient is slow to answer questions.
[2020-08-03] MEDS: divalproex sodium 500mg tablet.DR PO SCH (20:00)
[2020-08-03] MEDS: lithium carbonate 150mg capsule PO SCH (20:00)
[2020-08-03] MEDS: clonazePAM 1mg tablet PO PRN (20:21)
--- NOTE | 2020-08-03 20:35 | NUR ---
Patient continues to exhibit parania and delusions. Agitation is present. Patient takes his scheduled Klonopin PO. Patient refuses Depakote and [place]. Despite being able to look at medication labeling patient refuses them, he believes ther are counterfeit. Patient also refuses Seroquel PRN, believing the same thing.
--- NOTE | 2020-08-03 20:39 | NUR ---
Summer Farah Patients mother.
--- NOTE | 2020-08-03 20:40 | NUR ---
Patients mother called, she states patient has a history of Schizophrenia and Bipolar disease. Recent hospitalization at [facility]. Mother states patient was recently released and has become more delusional since that release. The mother states Klonopin is an effective medication that works well for her son.
[2020-08-03] MEDS ORDERED: divalproex sod 250mg ER (24-hour) tablet PO ONE (21:05)
[2020-08-03] MEDS ORDERED: quetiapine 100mg tablet PO ONE (21:05)
[2020-08-03] MEDS ORDERED: lithium carbonate 150mg capsule PO ONE (21:15)
--- NOTE | 2020-08-03 21:26 | NUR ---
Patient had earlier refused his evening medications save for Klonopin. Patient later, relaxed after the Klonopin, he exhibits less agitation and requests his nightime medications. The med's were re-entered with the pharmacy then dispensed. Patient is now medication compliant. Patient requested additional food and was given an extra meal that was available.
--- NOTE | 2020-08-04 02:40 | NUR ---
Patient sleeping quietly on his left side. Patient self rerepositions.
--- NOTE | 2020-08-04 04:38 | NUR ---
Patient sleeping low fowlers position in bed.
[2020-08-04 05:13] VITALS: BP 120/73
[2020-08-04] MEDS: clonazePAM 1mg tablet PO PRN (08:29)
[2020-08-04] MEDS: divalproex sodium 500mg tablet.DR PO SCH (08:30)
[2020-08-04] MEDS: lithium carbonate 150mg capsule PO SCH (08:30)
--- NOTE | 2020-08-04 08:38 | NUR ---
pt been up to bathroom walked with steady gate took all morning meds sitting up eating breakfast
--- NOTE | 2020-08-04 09:55 | NUR ---
in bed resting rise and fall of chest noted
[2020-08-04] MEDS ORDERED: NICOTINE POLACRILEX 4 MG LOZENGE BC PRN (11:30)
--- NOTE | 2020-08-04 11:44 | NUR ---
[facility]
== END 2020-08-04 13:07 | disposition home or self-care (01) ==
LOC: ER 13:57
DX: R45.851 Suicidal ideations (principal); G89.29 Other chronic pain; F41.9 Anxiety disorder, unspecified; F31.9 Bipolar disorder, unspecified; F20.9 Schizophrenia, unspecified; F12.90 Cannabis use, unspecified, uncomplicated; Z86.69 Personal history of other diseases of the nervous system and sense organs; Z72.89 Other problems related to lifestyle; Z56.0 Unemployment, unspecified; Z88.0 Allergy status to penicillin; Z79.899 Other long term (current) drug therapy
CPT/HCPCS: 36415; 80053; 80164; 80178; 80305; 80320; 81003; 84443; 85025; 99285; Q0163

== ENCOUNTER 2020-08-05 11:34 | Emergency (ER) | payer MEDICARE, MEDICAID ==
[~2020-08-05] VITALS: Ht 175.3 cm; Wt 96.0 kg
[~2020-08-05 11:34] MED LIST changes: -ALPR1TAB2 PO; -ASPI-1265 PO; +CLON-527 PO; -CLOZ100T21 PO; -DOCU250C96 PO; +LITH150C8 PO; -OLAN20TA3 PO; -PANT-47 PO; -PROP60CA37 PO; +QUET25TA PO; -TIZA4CAP PO
[2020-08-05 11:43] VITALS: BP 135/88
--- NOTE | 2020-08-05 11:49 | NUR ---
Pt has no plan for harm, no SI. Pt placed in lobby within line of sight of screener. Screener aware of Pt status and will monitor.
--- NOTE | 2020-08-05 12:25 | NUR ---
No contact data for pt. left msg for mother.
--- NOTE | 2020-08-05 14:22 | NUR ---
Mother called. She does not have number for pt. She reports he has been gone for 2 days. Her inquiry w/ MARIO ALBERTO left her w/ impression pt was brought in on 6030. She was informed pt was brought in for a Mental Health eval, but pt left just after being dropped off while in Lobby awaiting room under line of sight of screener.
== END 2020-08-05 11:53 | disposition left against medical advice (07) ==
LOC: ER 11:34
DX: Z00.8 Encounter for other general examination (principal); Z53.21 Procedure and treatment not carried out due to patient leaving prior to being seen by health care provider
CPT/HCPCS: 99284

== ENCOUNTER 2020-08-05 21:15 | Emergency (ER) | payer MEDICARE, MEDICAID ==
[~2020-08-05] VITALS: Ht 175.3 cm; Wt 101.0 kg
[2020-08-05] MEDS: LORazepam 1 MG tablet PO ONE ×2 (22:08→22:17)
[2020-08-05] MEDS: OLANZapine 2.5MG tablet PO STA ×2 (22:09→22:17)
[2020-08-05] MEDS ORDERED: LORazepam 2 mg/ml vial IM ONE (22:15)
[2020-08-05] MEDS ORDERED: haloperidol lactate 5mg/ml inj IM ONE (22:15)
[2020-08-05] MEDS ORDERED: diphenhydrAMINE 50 mg/ml inj IM ONE (22:15)
[2020-08-05] MEDS ORDERED: haloperidol lactate 5mg/ml inj ONE (22:16)
[2020-08-05] MEDS ORDERED: diphenhydrAMINE 50 mg/ml inj ONE (22:16)
[2020-08-05] MEDS ORDERED: LORazepam 2 mg/ml vial ONE (22:16)
[2020-08-05 22:28] LABS: BASOPHILS % (AUTO) 0.3 % (0-1); EOSINOPHILS % (AUTO) 0.3 % (0-6); HEMATOCRIT 42.6 % (42.0-52.0); LYMPHOCYTES # (AUTO) 2.7 X10'3 (1.1-4.8); LYMPHOCYTES % (AUTO) 22.1 % (21-51); MEAN CORPUSCULAR HEMOGLOBIN 28.7 PG (27.0-31.0); MEAN CORPUSCULAR HGB CONC 32.8 g/dL (33.0-36.5); MEAN CORPUSCULAR VOLUME 87.5 FL (78-98); MEAN PLATELET VOLUME 9.3 FL (7.4-10.4); MONOCYTES # (AUTO) 1.4 X10'3 (0-0.9); MONOCYTES % (AUTO) 11.4 % (2-12); NEUTROPHILS # (AUTO) 8.1 X10'3 (1.8-7.7); NEUTROPHILS % (AUTO) 65.9 % (42-75); PLATELET COUNT 177 X10'3 (140-440); RED BLOOD COUNT 4.87 X10'6 (4.70-6.10); RED CELL DISTRIBUTION WIDTH 14.4 % (11.5-14.5); WHITE BLOOD COUNT 12.3 X10'3 (4.5-11.0)
[2020-08-05 22:28] LABS: URINE AMPHETAMINE SCREEN NEGATIVE (Neg); URINE BARBITUATE SCREEN NEGATIVE (Neg); URINE BENZODIAZEPINES SCREEN NEGATIVE (Neg); URINE CANNABINOID SCREEN POSITIVE (Neg); URINE COCAINE SCREEN NEGATIVE (Neg); URINE METHADONE SCREEN NEGATIVE (Neg); URINE OPIATE SCREEN NEGATIVE (Neg); URINE PHENCYCLIDINE SCREEN NEGATIVE (Neg)
[2020-08-05 22:32] LABS: ALANINE AMINOTRANSFERASE 25 U/L (12-78); ALBUMIN 3.8 G/DL (3.4-5.0); ALBUMIN/GLOBULIN RATIO 1.3 (1.1-1.5); ALKALINE PHOSPHATASE 50 IU/L (46-116); ANION GAP 11 (8-16); ASPARTATE AMINO TRANSFERASE 81 U/L (10-37); BILIRUBIN,TOTAL 0.9 MG/DL (0.1-1.0); BLOOD UREA NITROGEN 23 MG/DL (7-18); BUN/CREATININE RATIO 20.4 (5.4-32.0); CALCIUM 8.9 MG/DL (8.5-10.1); CHLORIDE 100 MMOL/L (99-107); CREATININE 1.13 MG/DL (0.60-1.10); ETHANOL < 0.010 GM/DL (0.0-0.010); GLUCOSE 88 MG/DL (70-104); POTASSIUM 3.9 MMOL/L (3.5-5.1); SODIUM 136 MMOL/L (135-145); TOTAL CARBON DIOXIDE 25.5 MMOL/L (24-32); TOTAL PROTEIN 6.8 G/DL (6.4-8.2); eGFR 75 ML/MIN
--- NOTE | 2020-08-05 22:49 | NUR ---
Patient brought to bed 20 from main ER. Patient is sedated, he immediately goes to sleep.
--- NOTE | 2020-08-05 23:30 | NUR ---
Patient sleep on his left side. No distress.
--- NOTE | 2020-08-06 00:46 | NUR ---
PATIENT'S PACKET WAS SENT TO [facility].
--- NOTE | 2020-08-06 02:44 | NUR ---
Patient is sleeping quietly, in view from nursing station.
--- NOTE | 2020-08-06 03:58 | NUR ---
patient is eating sandwich quietly.
[2020-08-06] MEDS ORDERED: ibuprofen tablet 400 MG TABLET PO ONE (04:20)
[2020-08-06 08:56] LABS: CLARITY,URINE CLOUDY (Clear); GLUCOSE, URINE NEGATIVE (Neg); KETONES,URINE 15 mg/dl (Neg); LEUKOCYTE ESTERASE ,URINE NEGATIVE (Neg); NITRITES, URINE NEGATIVE (Neg); OCCULT BLOOD,URINE NEGATIVE (Neg); PH,URINE 5.5 (4.8-8.0); PROTEIN,URINE TRACE mg/dl (Neg); UROBILINOGEN,URINE 0.2 E.U/dL (0.2-1.0)
[2020-08-06 08:57] LABS: COLOR,URINE DARK YELLOW (Yellow); UA COLLECTION TYPE VOIDED
--- NOTE | 2020-08-06 08:58 | NUR ---
TC FROM MOTHER INQUIRING ABOUT MENTAL HEALTH SERVICES AND CARE. MOM, AAYUSH, CONTACT NUMBER IS [phone]. MOTHER INFORMED THAT PATIENT IS ON MH HOLD WHILE FACILITY IS LOCATED.
[2020-08-06 09:16] LABS: AMORPHOUS URATES 4+; BACTERIA,URINE NONE SEEN /HPF (Neg); RBC,URINE NONE SEEN /HPF (0-2); WBC,URINE 0-4 /HPF (0-4)
[2020-08-06 09:17] LABS: SQUAMOUS EPITHELIAL CELL,UR FEW /LPF (FEW)
[2020-08-06] MEDS ORDERED: acetaminophen 325mg tablet PO ONE (10:20)
--- NOTE | 2020-08-06 10:45 | NUR ---
pt requested a Nicotine Lozenge but MD Diaz says the pt can have a Nicotine patch but not a lozenge. pt aware and states he does not want a patch. pt resting on hospital bed.
--- NOTE | 2020-08-06 11:21 | NUR ---
pt moved from main er room 15 to overflow 20.
[2020-08-06] MEDS ORDERED: clonazePAM 1mg tablet PO PRN (13:00)
[2020-08-06] MEDS ORDERED: QUEtiapine 25mg tablet PO PRN (13:00)
[2020-08-06 18:07] VITALS: BP 131/87
[2020-08-06] MEDS ORDERED: divalproex sodium 500mg tablet.DR PO SCH (20:00)
[2020-08-06] MEDS ORDERED: lithium carbonate 150mg capsule PO SCH (20:00)
== END 2020-08-06 21:27 ==
LOC: ER 21:15
DX: F99 Mental disorder, not otherwise specified (principal); F29 Unspecified psychosis not due to a substance or known physiological condition; F31.9 Bipolar disorder, unspecified; G89.29 Other chronic pain; F41.9 Anxiety disorder, unspecified; F20.9 Schizophrenia, unspecified; F12.90 Cannabis use, unspecified, uncomplicated; Z72.89 Other problems related to lifestyle; Z56.0 Unemployment, unspecified; Z88.0 Allergy status to penicillin; Z79.899 Other long term (current) drug therapy
CPT/HCPCS: 36415; 80053; 80178; 80305; 80320; 81001; 85025; 96372; 99285; J1200; J1630; J2060

== ENCOUNTER 2020-08-06 16:20 | Inpatient (IN) | payer MEDICARE, MEDICAID ==
[~2020-08-06] VITALS: Ht 172.7 cm; Wt 100.3 kg
[2020-08-06] MEDS ORDERED: traZODone 50mg tablet PO PRN (23:10)
[2020-08-06] MEDS ORDERED: mag hydrox/Alum hydrox/simeth 30ml oral suspension PO PRN (23:10)
[2020-08-06] MEDS ORDERED: acetaminophen 325mg tablet PO PRN (23:10)
[2020-08-06] MEDS ORDERED: loperamide 2mg capsule PO PRN (23:10)
[2020-08-06] MEDS ORDERED: magnesium hydroxide 30ml (MOM) UD suspension PO PRN (23:10)
--- NOTE | 2020-08-06 23:33 | NUR ---
Nursing Progress Note: Admit Legal hold: 5150 Client on involuntary status for GD Report received from nurse with use of SBAR[]. Why are they here: Patient is a 34-year-old male with a history of anxiety, bipolar disorder, and schizophrenia who presented to the ED complaining of being anxious and agitated. Patient stated that he has been "walking for 3 days and 3 nights." He denies any alcohol use tonight. However he does report smoking marijuana today and thinks that this marijuana and that "cigarettes [he] smoked off the ground" were laced with a drug. Patient admitted to auditory hallucination and stated that he is unable to control these voices and that they will speak through his mouth. Patient denied any other associated symptoms at this time. Patient denied any other alleviating or exacerbating factors. Assessment What has happened this shift: Pt arrived on floor ambulatory accompanied by Liu EDWARD. He was alert and oriented to person and place. Skin Check completed. Belongings inventoried. Pt was cooperative with Admit assessment for the most part. At times became agitated but was redirectable. Denied A/VH but mumbled constantly appeared to be in response to internal stimuli. Refused to sign consent form for medications became very agitated "Those are medications that make me psychotic" Completed most of admit paperwork then pt stood up announced he was going to bed. He had been shown where his room was and he went to it and got in bed and was asleep in a short time. S/I, H/I: Denies A/VH: Denies Sleep: Asleep at this time ADL's: Independent my need encouragement Group attendance: NA Were meds taken: yes in ER Any med S/E no Mental Status Exam Appearance: Neat clean Eye contact: Poor Behavior: cooperative periods of agitation Speech: Clear when answering questions mumbles almost constantly in between Mood: labile Affect: blunted Thought process: Tangential Thought Content: seems preoccupied with internal stimuli Cognition: fair Insight: poor Judgment:poor Interventions PRN's used: none Therapeutic interventions: Maintained a safe and therapeutic environment, provided clear and simple instructions, attempted to orient to reality. Provided redirection as needed, and monitored behavior and need for intervention. Restraints/seclusion/emergency medication: none Justification of Continued Inpatient Treatment: Pt. requires interruption of current crisis, medication adjustments, and a safe and supportive environment.
[2020-08-07 07:46] LABS: HEMOGLOBIN A1C 5.1 % (4.5-6.2)
[2020-08-07 07:47] LABS: CHOL/HDL RATIO 2.8 (0.00-4.99); CHOLESTEROL 121 MG/DL (0-200); HDL CHOLESTEROL 43 MG/DL (35-60); LDL CHOLESTEROL 63 MG/DL (50-100); TRIGLYCERIDES 115 MG/DL (20-135)
[2020-08-07 08:00] VITALS: BP 100/70
[2020-08-07] MEDS: NICOTINE POLACRILEX 2 MG LOZENGE BC PRN (09:51)
[2020-08-07] MEDS ORDERED: QUEtiapine 25mg tablet PO PRN (10:05)
[2020-08-07] MEDS ORDERED: CLOZAPINE 50 MG PO ONE (12:00)
[2020-08-07] MEDS ORDERED: PALIPERIDONE 3 MG TAB.ER.24 PO ONE ×2 (12:05→21:00)
[2020-08-07] MEDS: clonazePAM 1mg tablet PO SCH ×2 (12:21→20:40)
[2020-08-07] MEDS: lithium carbonate 150mg capsule PO SCH ×2 (12:21→20:41)
[2020-08-07] MEDS: divalproex sodium 500mg tablet.DR PO SCH ×2 (12:21→20:40)
--- NOTE | 2020-08-07 14:22 | NUR ---
Nursing Progress Note: Admit Legal hold: 5150 Client on involuntary status for GD Report received from nurse Ros RN with use of SBAR Why are they here: Patient is a 34-year-old male with a history of anxiety, bipolar disorder, and schizophrenia who presented to the ED complaining of being anxious and agitated. Patient stated that he has been "walking for 3 days and 3 nights." He denies any alcohol use tonight. However he does report smoking marijuana today and thinks that this marijuana and that "cigarettes [he] smoked off the ground" were laced with a drug. Patient admitted to auditory hallucination and stated that he is unable to control these voices and that they will speak through his mouth. Assessment What has happened this shift: Pt allowed a physical assessment this morning. He does not want a nicotine patch though does ask for nicotine lozenges. Pt initially did not wish to participate in a mental health assessment. He returned to bed after breakfast and stated, "I don't want to talk right now...I'm sleepy." Pt observed responding to internal stimuli laughing and talking to himself. Pt paces the unit. Pt's mom called with information for his nurse. Pt gave permission for this RN to speak with his mother. Mom Summer Farah reported that the patient has a place to live. She had his trailer moved into her trailer park so she could help and keep an eye on him. Pt took off 3 days ago per mom. Mom reported that the patient had been talking to the voices all day and all night and that he had only been taking Depakote and Johnson, pt told mom that Clozaril had not been prescribed. Mom stated that pt used to live at [facility] 8 years ago, he lived there for 3 years. Mom reported that after [facility] he was being followed by a psychiatrist in [place], he was receiving the Invega monthly shot which "really helped the voices a lot, he was normal again." Mom stated that [facility] followed the pt after the doctor in [place] and they continued the Invega. The patient decided he wanted to change doctors and switched to [facility], they took him off Invega and put him on Clozaril which mom states also helped until he became noncompliant and decided to stop taking his meds. She indicated that she felt the Invega Sustenna injection may be a good idea. Depakote, Johnson, and Clozaril are all meds that required a significant level of compliance as well as frequent lab draws. Spoke with Dr Abebe who ordered to give Paliperidone 6 mg once. He also ordered Johnson, Depakote, and Klonopin. Pt was given Johnson 300 mg, Depakote 1000 mg, Klonopin 1 mg and the paliperidone at 1220. Pt also was okay with the idea of restarting the Invega injections. Pt stated that he needs medication. Pt reported AH and the voices were telling him to break the radio headphones that are already broken. Pt is disorganized, tangential, and delusional in his thought process. He thought this nurse was a lady by another name. Pt reported that the voices were "retards." He then spoke of "retards" in the trailer park in [place] which he does not seem to like very much. Pt became upset and mildly agitated when he heard he was being started on Klonopin, asked if it was Klonopin with a "K" stated that he can only take Klonopin with a "C." Educated that Clonazepam is the generic. Pt asked what color it was as he can't take the yellow one, it makes him crazy. Pt was relieved to see that the pill was blue. Pt looked at the Depakote and said,"Oh the pink Depakotes...little sluts." S/I, H/I: Pt denies A/VH: Pt denies Sleep: Pt slept 5.5 hours last night per noc shift report. ADL's: Independent Group attendance: No Were meds taken: Yes Any med S/E: None noted or reported. Mental Status Exam Appearance: Neat clean man with a full camara and moustache wearing a baseball cap and green hospital scrubs. Eye contact: Fair Behavior: Restless, paces in the hallway, talks and laughs to himself. Speech: Rapid mumbling, inappropriate laughter. Mood: Labile Affect: Labile Thought process: Delusional, disorganized, tangential Thought Content: Internally preoccupied, particular about the color of his pills. Cognition: A/O X 2 Insight: Poor Judgment: Impaired Interventions PRN's used: None, pt refused PRN Ativan because he states it makes him "go crazy." Therapeutic interventions: 1:1 assessment, therapeutic communication, active listening, medication administration/education/monitoring, behavior monitoring and intervention as needed; reality orientation distraction, redirection, verbal de-escalation, positive reinforcement, Q 15 minute safety checks. Restraints/seclusion/emergency medication: None Justification of Continued Inpatient Treatment: Pt requires crisis interruption and stabilization with medication adjustments and monitoring in a safe and therapeutic environment. Addendum: 08/07/20 at 1501 by Payton Adkins RN (Lee) Seroquel was D/c'd, PRN Klonopin 1 mg Q4H added for anxiety, Klonopin 2 mg to be given along with PRN Zyprexa 10 mg PRN agitation, max 2X in 24 hours, paliperidone 6 mg to be given once tonight at HS then pt to take paliperidone 9 mg PO daily. Pt's trazodone was increased to 100 mg HS MR X 1. Addendum: 08/07/20 at 1544 by Payton Adkins RN (Lee) Pt became agitated around 1500 due to a new male patient who was lost entering his room several times. Pt is paranoid and began yelling threats and obscenities to keep that dez out of his room. Pt made verbal threats to the new patient and to staff, reportedly threatened to kill the charge nurse. Verbal de-escalation and show of support from security utilized. Pt was given PRN Klonopin 2 mg and Zyprexa 10 mg PO for agitation at 1518. Pt was cooperative with taking the meds. Pt is currently calm and lying in his bed.
[2020-08-07] MEDS: clonazePAM 1mg tablet PO PRN (15:18)
[2020-08-07] MEDS: olanzapine 10mg tablet PO PRN (15:18)
[2020-08-07 20:00] VITALS: BP 113/76
[2020-08-07] MEDS ORDERED: clonazePAM 1mg tablet PO SCH (20:00)
[2020-08-07] MEDS ORDERED: lithium carbonate 150mg capsule PO SCH (20:00)
[2020-08-07] MEDS ORDERED: divalproex sodium 500mg tablet.DR PO SCH (20:00)
[2020-08-07] MEDS: traZODone 50mg tablet PO SCH (20:41)
--- NOTE | 2020-08-08 00:59 | NUR ---
Nursing Progress Note: Legal hold: 5150 Client on involuntary status for GD Report received from LYNN Peralta with use of SBAR Why are they here: Patient is a 34-year-old male with a history of anxiety, bipolar disorder, and schizophrenia who presented to the ED complaining of being anxious and agitated. Patient stated that he has been "walking for 3 days and 3 nights." He denies any alcohol use tonight. However he does report smoking marijuana today and thinks that this marijuana and that "cigarettes [he] smoked off the ground" were laced with a drug. Patient admitted to auditory hallucination and stated that he is unable to control these voices and that they will speak through his mouth. Assessment What has happened this shift: The patient was found in his bed. He would not let physical assessment be done tonight. "I'm tired, just leave me alone." The patient remained isolated to his room all evening. He did not verbalize any delusional comments, but could be seen responding to IS. The patient took all his medications without looking for colors. He has stayed in his room all shift. S/I, H/I: Denies A/VH: Denies Sleep: See sleep assessment. ADL's: Independent Group attendance: No Were meds taken: Yes Any med S/E: None reported or observed. Mental Status Exam Appearance: Disheveled man with a full camara and moustache wearing a baseball cap and green hospital scrubs. Eye contact: Fair Behavior: Isolative, delusional, mumbling,laughing inappropriately. Speech: Mumbles, sometimes clear. Mood: Labile Affect: Labile Thought process: Delusional, disorganized, tangential Thought Content: Internally preoccupied. Cognition: A/O X 2 Insight: Poor Judgment: Impaired Interventions PRN's used: None Therapeutic interventions: 1:1 assessment, therapeutic communication, active listening, medication administration/education/monitoring, behavior monitoring and intervention as needed; reality orientation distraction, redirection, verbal de-escalation, positive reinforcement, Q 15 minute safety checks. Restraints/seclusion/emergency medication: None Justification of Continued Inpatient Treatment: Pt requires crisis interruption and stabilization with medication adjustments and monitoring in a safe and therapeutic environment
[2020-08-08] MEDS: NICOTINE POLACRILEX 2 MG LOZENGE BC PRN ×3 (07:53→18:40)
[2020-08-08 08:00] VITALS: BP 118/71
[2020-08-08] MEDS: lithium carbonate 150mg capsule PO SCH ×2 (08:10→20:03)
[2020-08-08] MEDS: clonazePAM 1mg tablet PO SCH ×2 (08:10→20:03)
[2020-08-08] MEDS: PALIPERIDONE 3 MG TAB.ER.24 PO SCH (08:11)
[2020-08-08] MEDS: divalproex sodium 500mg tablet.DR PO SCH ×2 (08:11→20:03)
--- NOTE | 2020-08-08 13:49 | NUR ---
Nursing Progress Note: Legal hold: 5150 Client on involuntary status for GD Report received from nurse Fabian BAILEY with use of SBAR Why are they here: Patient is a 34-year-old male with a history of anxiety, bipolar disorder, and schizophrenia who presented to the ED complaining of being anxious and agitated. Patient stated that he has been "walking for 3 days and 3 nights." He denies any alcohol use tonight. However he does report smoking marijuana today and thinks that this marijuana and that "cigarettes [he] smoked off the ground" were laced with a drug. Patient admitted to auditory hallucination and stated that he is unable to control these voices and that they will speak through his mouth. Assessment What has happened this shift: Pt was up before breakfast pacing the unit. Pt asked for some clothing out of his locker and was momentarily slightly agitated as he believed there were some sweat pants missing but then after some choice words stated, "whatever" and walked away. Pt responds to internal stimuli, he paces the unit muttering/talking to himself. Noted in the chart that pt preferred to be called J.B. Asked the patient what he would like to be called. He replied, "you can call me venessa strong, no just kidding, you can call me Mac. Everyone wants to give me a nickname, I don't need one." record filing clerk reported that pt broke a set of radio headphones, he had some signed out to him and when she went to get them he reported that he had broken them because the voices told him to and that he had hidden them because they had told him to do this as well. Pt retrieved the broken headphones from where he had hidden them and handed them to the community recreation programmer. Pt stated that the voices told him to break the headphones that were already broken. Pt was cooperative with medications and unit procedures. No loud verbal outbursts or threats to staff or other patients today . Pt requested PRN nicotine lozenges at 0753 and 1224. S/I, H/I: Pt denies A/VH: +AH Sleep: Pt slept 8 hours last night per noc shift report. ADL's: Independent Group attendance: No Were meds taken: Yes Any med S/E: None noted or reported. Mental Status Exam Appearance: man with a full camara and moustache wearing a baseball cap, black jeans and a lundberg sweatshirt. Eye contact: Fair Behavior: Restless, paces in the hallway, talks and laughs to himself. Speech: Clear, audible Mood: Labile Affect: Labile Thought process: Paranoid, delusional, disorganized, tangential Thought Content: He is missing some sweat pants, he doesn't need a nickname. Cognition: A/O X 3 Insight: Poor Judgment: Poor Interventions PRN's used: Nicotine lozenges Therapeutic interventions: 1:1 assessment, therapeutic communication, active listening, medication administration/education/monitoring, behavior monitoring and intervention as needed; reality orientation distraction, redirection, reassurance that pt is safe here, positive reinforcement, Q 15 minute safety checks. Restraints/seclusion/emergency medication: None Justification of Continued Inpatient Treatment: Pt requires crisis interruption and stabilization with medication adjustments and monitoring in a safe and therapeutic environment. Addendum: 08/08/20 at 1607 by Payton Adkins RN (Lee) powder guard on unit notified this nurse that the patient was agitated and had been yelling things like "nigger!" in the hallway around 1515. This RN went and spoke with the patient to ask him what was the matter. Pt was in his room lying in his bed verbalizing to himself in angry tones about coffee and the staff here. Asked the patient what was wrong, why had he been yelling. Pt stated in a hostile tone "I hate this place, you're not good people." Verbal de-escalation ineffective, pt continued with continuous ranting verbalizations. Offered pt some PRN medication to help him calm down. Pt retorted, "Do you need some medicine to make you a good person?" This RN walked away and returned with PRN Klonopin 2 mg and Zyprexa 10 mg, found pt standing in the snack line. Pt took the medication then stated, "Thank you very much, now I'll go to sleep to get butt raped."
[2020-08-08] MEDS: olanzapine 10mg tablet PO PRN (15:21)
[2020-08-08] MEDS: clonazePAM 1mg tablet PO PRN (15:22)
[2020-08-08] MEDS ORDERED: paliperidone palmitate inj 234 MG/1.5 ML SYRINGE IM ONE (16:10)
[2020-08-08 20:00] VITALS: BP 125/75
[2020-08-08] MEDS: traZODone 50mg tablet PO SCH (20:03)
--- NOTE | 2020-08-08 23:43 | NUR ---
Nursing Progress Note: Legal hold: 5150 Client on involuntary status for GD Report received from LYNN Johnson with use of SBAR Why are they here: Patient is a 34-year-old male with a history of anxiety, bipolar disorder, and schizophrenia who presented to the ED complaining of being anxious and agitated. Patient stated that he has been "walking for 3 days and 3 nights." He denies any alcohol use tonight. However he does report smoking marijuana today and thinks that this marijuana and that "cigarettes [he] smoked off the ground" were laced with a drug. Patient admitted to auditory hallucination and stated that he is unable to control these voices and that they will speak through his mouth. Assessment What has happened this shift: The patient was pacing the halls at shift change. He was walking slowly mumbling to himself. 1:1 was completed at his bedside. At one point he showed me a wadded up paper, and said, "this is to save the children. they are hurting and need it." He would not show it to me, or explain what it meant. The patient spends most of the evening in his room in the dark. He continues to respond to IS. He denies SI/HI, but states he hears voices, "they tell me to do things, but I don't like what they say." The patient took HS without looking at them for colors. S/I, H/I: Denies A/VH: Denies Sleep: See sleep assessment. ADL's: Independent Group attendance: No Were meds taken: Yes Any med S/E: None reported or observed. Mental Status Exam Appearance: Disheveled man with a full camara and moustache wearing a baseball cap and green hospital scrubs. Eye contact: Fair Behavior: Isolative, delusional, mumbling,laughing inappropriately. Speech: Mumbles, sometimes clear. Mood: Labile Affect: Labile Thought process: Delusional, disorganized, tangential Thought Content: Internally preoccupied. Cognition: A/O X 2 Insight: Poor Judgment: Impaired Interventions PRN's used: None Therapeutic interventions: 1:1 assessment, therapeutic communication, active listening, medication administration/education/monitoring, behavior monitoring and intervention as needed; reality orientation distraction, redirection, verbal de-escalation, positive reinforcement, Q 15 minute safety checks. Restraints/seclusion/emergency medication: None Justification of Continued Inpatient Treatment: Pt requires crisis interruption and stabilization with medication adjustments and monitoring in a safe and therapeutic environment Addendum: 08/09/20 at 0117 by Juan Jose Lim RN The patient accepted his Invega Sustenna injection without comment.
[2020-08-09] MEDS: NICOTINE POLACRILEX 2 MG LOZENGE BC PRN ×5 (02:30→20:56)
[2020-08-09] MEDS: clonazePAM 1mg tablet PO PRN ×2 (05:36→20:56)
[2020-08-09] MEDS: clonazePAM 1mg tablet PO SCH ×2 (07:26→20:11)
[2020-08-09] MEDS: divalproex sodium 500mg tablet.DR PO SCH ×2 (07:26→20:11)
[2020-08-09] MEDS: PALIPERIDONE 3 MG TAB.ER.24 PO SCH (07:27)
[2020-08-09] MEDS: lithium carbonate 150mg capsule PO SCH ×2 (07:27→20:11)
[2020-08-09 07:30] VITALS: BP 121/78
--- NOTE | 2020-08-09 13:50 | NUR ---
Behavior: Chemical Restraint At approximately 1350, pt. was walking in the hallway and spotted his new roommate. He became agitated and confronted and postured towards roommate, yelling out in a psychotic way, "That mother avelino is Elifte, I'm going to get him and murder him in his sleep!" Staff was able to redirect pt. to his room and attempted to verbally de-escalate him without success. Pt. was provided eduction that if he physically assaulted anyone on the unit, the police would be called and he would be going to alf. Pt. continued to be psychotic and yelled out, "I don't care, if he comes in this room I am going to get him!" Staff isolated pt. in his room, and kept his roommate at the other end of the hallway with security. Obtained an order for an injection of Ativan 2mg, Haldol 5mg, and Benadryl 50 mg. Security was called to stand-by, however pt. was cooperative with injections and allowed staff to administer bilaterally in the ventrogluteal sites. Pt. responded well to medication and lay in bed for approximately one hour afterwards, V/S remained WNL, and pt. reported that he felt much better. No further incidents of behavioral out-rwody, threats, or agitation exhibited during the shift. Roommate pt. had threatened was moved to a new room.
[2020-08-09] MEDS ORDERED: diphenhydrAMINE 50 mg/ml inj ONE (13:56)
[2020-08-09] MEDS ORDERED: haloperidol lactate 5mg/ml inj ONE (13:57)
[2020-08-09] MEDS ORDERED: LORazepam 2 mg/ml vial ONE (13:58)
[2020-08-09 14:25] VITALS: BP 106/63
[2020-08-09 14:55] VITALS: BP 117/63
[2020-08-09 15:10] VITALS: BP 120/60
[2020-08-09 15:25] VITALS: BP 139/89
[2020-08-09] MEDS: haloperidol 5mg tablet PO SCH (17:08)
[2020-08-09] MEDS: LORazepam 1 MG tablet PO SCH (17:09)
--- NOTE | 2020-08-09 18:00 | NUR ---
Nursing Progress Note: Legal hold: 5150 Client on involuntary status for GD Report received from nurse with use of SBAR: LYNN Peralta Why are they here: Patient is a 34-year-old male with a history of anxiety, bipolar disorder, and schizophrenia who presented to the ED complaining of being anxious and agitated. Patient stated that he has been "walking for 3 days and 3 nights." He denies any alcohol use tonight. However he does report smoking marijuana today and thinks that this marijuana and that "cigarettes [he] smoked off the ground" were laced with a drug. Patient admitted to auditory hallucination and stated that he is unable to control these voices and that they will speak through his mouth. Assessment What has happened this shift: Received pt. sitting at bedside at the beginning of the shift, he greeted this technical writer appropriately, however appeared internally preoccupied and stated (regarding A/HOUSE), "They tell me about you sometimes." Pt. presents as cooperative, anxious, agitated, impulsive, guarded, and withdrawn. 1:1 completed at bedside, pt. denies S/I or H/I, however admits to A/V/HOUSE. He reports A/V/HOUSE of ghosts, then states in a paranoid delusional way, "The ghost in the bed next to me (bed is unoccupied) wouldn't stop talking and trying to have sex with me last night, so I put her down the toilet." Pt. continued to make delusional statements throughout the shift, however was able to be redirected most of the time. However, he became agitated during the afternoon when a new roommate was put in his room (see previous behavioral note note). S/I, H/I: Denies A/VH: He reports A/V/HOUSE of ghosts Sleep: Pt. reports he slept well ADL's: Requires some direction Group attendance: No Were meds taken: Yes Any med S/E: None Mental Status Exam Appearance: Somewhat disheveled, however appropriately dressed Eye contact: Good, intense at times Behavior: Cooperative, anxious, agitated, impulsive, guarded, and withdrawn Speech: WNL, pressured and loud when agitated Mood: Guarded and anxious Affect: Labile Thought process: Tangental Thought Content: A/V/HOUSE and paranoid delusions Cognition: A&O X2 (believes the year is 192 and he is here because he already [facility] Insight: Poor Judgment: Poor Interventions PRN's used: Nicotine Lozenge Therapeutic interventions: Introduced self and established rapport, ensured contract for safety, maintained a safe and supportive environment, provided clear and simple instructions, monitored behavior and need for intervention, provided redirection and de-escalation as needed, and maintained Q 15min safety checks. Restraints/seclusion/emergency medication: Chemical restraints (see behavioral note) Justification of Continued Inpatient Treatment: Pt. requires interruption of current crisis, medication adjustments, and a safe and supportive environment.
[2020-08-09] MEDS: traZODone 50mg tablet PO SCH ×3 (20:11→22:15)
--- NOTE | 2020-08-10 00:46 | NUR ---
Nursing Progress Note: Legal hold: 5250 Client on involuntary status for GD Report received from LYNN Ruiz with use of SBAR Why are they here: Patient is a 34-year-old male with a history of anxiety, bipolar disorder, and schizophrenia who presented to the ED complaining of being anxious and agitated. Patient stated that he has been "walking for 3 days and 3 nights." He denies any alcohol use tonight. However he does report smoking marijuana today and thinks that this marijuana and that "cigarettes [he] smoked off the ground" were laced with a drug. Patient admitted to auditory hallucination and stated that he is unable to control these voices and that they will speak through his mouth. Assessment What has happened this shift: Pt was in his room sleeping during shift change. He appear to be in no distress. Pt was woken up by this RN to serve him his 5250. He was somewhat upset by this but he did sign the paperwork after this RN tried to read him his advisement but he states "It's fine, I'll just sign it but it's the last thing I sign." He attended snack in group room and he did not appear agitated. He refused vital signs and most of his physical assessment. Would not answer any of the questions this RN was asking him. He took most of his HS meds but only took 50mg of his 100mg dose of Trazodone. Later he came up and requested Xanax. This RN let pt know that this was not in the list of medications I could give to him and he agreed to take Klonopin. This was given with minimal effectiveness. He was observed pacing he isles and appear to be responding to internal stimuli as he was talking and mumbling to himself. He agreed to take another dose of Trazodone but again only took 50mg. He is paranoid that this will make him very thirsty. He was pacing the isles some more but retired to his room after this RN gave him a snack. S/I, H/I: Denies A/VH: Denies, however he does appear to be responding to internal stimuli Sleep: Currently sleeping, see sleep assessment for total hours ADL's: Independent Group attendance: No Were meds taken: Yes Any med S/E: None reported or observed. Mental Status Exam Appearance: Disheveled man with a full camara and moustache wearing a baseball cap, personal clothing. Eye contact: Fair to minimal Behavior: Mostly cooperative, guarded, pacing and mumbling to himself Speech: Mumbles, sometimes clear. Mood: Labile Affect: Flat Thought process: Delusional, disorganized, tangential Thought Content: Paranoid about the medication he is taking Cognition: A/O X 2 Insight: Poor Judgment: Poor Interventions PRN's used: Klonopin, Second dose of Trazodone, Nicotine lozenge Therapeutic interventions: 1:1 assessment, therapeutic communication, active listening, medication administration/education/monitoring, behavior monitoring and intervention as needed; reality orientation distraction, redirection, verbal de-escalation, positive reinforcement, Q 15 minute safety checks. Restraints/seclusion/emergency medication: None Justification of Continued Inpatient Treatment: Pt requires crisis interruption and stabilization with medication adjustments and monitoring in a safe and therapeutic environment
[2020-08-10 07:23] VITALS: BP 113/76
[2020-08-10] MEDS: divalproex sodium 500mg tablet.DR PO SCH ×2 (07:42→19:06)
[2020-08-10] MEDS: clonazePAM 1mg tablet PO SCH ×2 (07:42→19:13)
[2020-08-10] MEDS: lithium carbonate 150mg capsule PO SCH ×2 (07:43→19:07)
[2020-08-10] MEDS: PALIPERIDONE 3 MG TAB.ER.24 PO SCH (07:43)
[2020-08-10] MEDS: NICOTINE POLACRILEX 2 MG LOZENGE BC PRN ×4 (07:43→21:11)
[2020-08-10] MEDS: clonazePAM 1mg tablet PO PRN ×2 (08:35→13:58)
--- NOTE | 2020-08-10 11:55 | NUR ---
Initial: Pt admit with psychosis. Currently on a regular diet documented with 75-100% PO intake meeting estimated nutrient needs. LBM 08/09. No documented edema or wounds. No nutrition diagnosis at this time. Will continue to follow. Recommendations: 1) Continue regular diet 2) Bowel care per rx 3) Scaled weights per rx Addendum: 08/10/20 at [address] Amended: Links added.
[2020-08-10] MEDS: LORazepam 1 MG tablet PO SCH ×2 (12:50→19:06)
[2020-08-10] MEDS: haloperidol 5mg tablet PO SCH ×2 (12:50→19:07)
--- NOTE | 2020-08-10 15:07 | NUR ---
Nursing Progress Note: Legal hold: 5150 Client on involuntary status for GD Report received from nurse with use of SBAR: LYNN Peralta Why are they here: Patient is a 34-year-old male with a history of anxiety, bipolar disorder, and schizophrenia who presented to the ED complaining of being anxious and agitated. Patient stated that he has been "walking for 3 days and 3 nights." He denies any alcohol use tonight. However he does report smoking marijuana today and thinks that this marijuana and that "cigarettes [he] smoked off the ground" were laced with a drug. Patient admitted to auditory hallucination and stated that he is unable to control these voices and that they will speak through his mouth. Assessment What has happened this shift: Received pt. laying in bed at the beginning of the shift, he awoke and greeted this handbook writer requesting AM medications. Medications administered and 1:1 completed at bedside. Pt. continues to present as labile and is tearful during the time of assessment, his speech is mumbled and he is difficult to understand. Pt. states tearfully, "I miss my brother, he's locked up. I want to go get him out of prison." This handbook writer provided active listening and positive encouragement with effectiveness. Pt. continues to deny S/I or H/I, however admits to ongoing A/V/HOUSE of different people and ghosts. Pt. begins actively responding to these hallucinations aloud in a agitated manner, states, "Stand down! Stand down!" This handbook writer was able to redirect pt. and headphones were given to him so that he could listen to music. However, at approximately 0830, pt. again began to actively respond aloud to internal stimuli in an anxious manner, PRN Clonazepam 1mg administered with effectiveness. Pt. continues to present as restless and distracted throughout the day and is unable to attend groups. He again became increasingly anxious at approximately 1400 and began pacing in the hallway. When questioned by this handbook writer pt. stated anxiously, "The sand people are after me! There's an Gays inside of me right now!" He then began speaking in a non-senseical manner which he identified as the Gays inside of him speaking, PRN Clonazepam 1mg again administered with effectiveness. S/I, H/I: Denies A/VH: Ongoing A/V/HOUSE of different people and ghosts Sleep: Pt. reports he slept well, however sleep hours are 4.5 ADL's: Requires some direction Group attendance: No Were meds taken: Yes Any med S/E: None Mental Status Exam Appearance: Somewhat disheveled, however appropriately dressed Eye contact: Good, intense at times Behavior: Cooperative, anxious, agitated, impulsive, guarded, and withdrawn Speech: WNL, pressured and loud when agitated Mood: Guarded and anxious Affect: Labile Thought process: Tangental Thought Content: A/V/HOUSE and paranoid delusions Cognition: A&O X2 Insight: Poor Judgment: Poor Interventions PRN's used: Nicotine Lozenges and Clonazepam 1mg X2 Therapeutic interventions: Ensured contract for safety, maintained a safe and supportive environment, provided clear and simple instructions, monitored behavior and need for intervention, provided redirection and de-escalation as needed, and maintained Q 15min safety checks. Restraints/seclusion/emergency medication: N/A Justification of Continued Inpatient Treatment: Pt. requires interruption of current crisis, medication adjustments, and a safe and supportive environment. Per Dr. Abebe, discharge will be home vs the [facility]. Addendum: 08/10/20 at 1646 by Roxi Nowak RN Legal hold is 1944
[2020-08-10 20:00] VITALS: BP 123/63
[2020-08-10] MEDS ORDERED: traZODone 50mg tablet PO SCH (21:15)
--- NOTE | 2020-08-11 01:15 | NUR ---
Nursing Progress Note: Legal hold: 5250 Client on involuntary status for GD Report received from nurse with use of SBAR: LYNN Ruiz Why are they here: Patient is a 34-year-old male with a history of anxiety, bipolar disorder, and schizophrenia who presented to the ED complaining of being anxious and agitated. Patient stated that he has been "walking for 3 days and 3 nights." He denies any alcohol use prior to coming into the ED However he does report smoking marijuana and thinks that this marijuana and that "cigarettes [he] smoked off the ground" were laced with a drug. Patient admitted to auditory hallucination and stated that he is unable to control these voices and that they will speak through his mouth. Assessment What has happened this shift: Received pt. Patient came to me requesting his nicotine lozenge. Medications were given and my physical assessment was done, patient was polite, and willing to let me do my assessment. After medications were given he slept in bed for a couple hours and then requested another nicotine lozenge and Trazodone to help him sleep. He ate a snack and walked around for a little while with head phones and then went back to bed. He had a flat affect, but did not have any outbursts, tearfulness or hallucinations. S/I, H/I: Denies A/VH: denied Sleep: adequate ADL's: Requires some direction Group attendance: N/a Were meds taken: Yes Any med S/E: None Mental Status Exam Appearance: Somewhat disheveled, however appropriately dressed Eye contact: looks down, little eye contact Behavior: Cooperative, anxious, guarded, and withdrawn Speech: WNL, pressured Mood: Guarded and anxious Affect: Flat Thought process: Thought Cognition: A&O X3 Insight: Poor Judgment: Poor Interventions PRN's used: Nicotine Lozenges x2 Therapeutic interventions: maintained a safe and supportive environment, provided clear and simple instructions, monitored behavior and need for intervention, and maintained Q 15min safety checks. Restraints/seclusion/emergency medication: N/A Justification of Continued Inpatient Treatment: Pt. requires interruption of current crisis, medication adjustments, and a safe and supportive environment. Per Dr. Abebe, discharge will be home vs the [facility]
[2020-08-11 07:16] VITALS: BP 114/67
[2020-08-11] MEDS: divalproex sodium 500mg tablet.DR PO SCH ×2 (07:48→19:25)
[2020-08-11] MEDS: lithium carbonate 150mg capsule PO SCH ×2 (07:49→19:25)
[2020-08-11] MEDS: clonazePAM 1mg tablet PO SCH ×2 (07:49→19:25)
[2020-08-11] MEDS: PALIPERIDONE 3 MG TAB.ER.24 PO SCH (07:50)
[2020-08-11] MEDS: acetaminophen 325mg tablet PO PRN (11:02)
[2020-08-11] MEDS: NICOTINE POLACRILEX 2 MG LOZENGE BC PRN ×2 (11:02→16:31)
[2020-08-11] MEDS: LORazepam 1 MG tablet PO SCH ×3 (11:37→20:04)
[2020-08-11] MEDS: haloperidol 5mg tablet PO SCH ×3 (11:37→20:04)
[2020-08-11] MEDS: clonazePAM 1mg tablet PO PRN (16:32)
--- NOTE | 2020-08-11 17:42 | NUR ---
Nursing Progress Note: Legal hold: 5250 Client on involuntary status for GD Report received from LYNN Peralta with use of SBAR: Why are they here: Patient is a 34-year-old male with a history of anxiety, bipolar disorder, and schizophrenia who presented to the ED complaining of being anxious and agitated. Patient stated that he has been "walking for 3 days and 3 nights." He denies any alcohol use prior to coming into the ED However he does report smoking marijuana and thinks that this marijuana and that "cigarettes [he] smoked off the ground" were laced with a drug. Patient admitted to auditory hallucination and stated that he is unable to control these voices and that they will speak through his mouth. Assessment What has happened this shift: Pt requested his meds this am and RN gave am meds without complication. He was polite and quietly mumbled answers. He went to breakfast and then back to bed. He walked the halls briefly with headphones. He requested juice. He smiled and was calm with this RN. Later in the afternoon, he became agitated as his roommate was agitated and he began saying, Im tired of this experiment youre doing with my brother and me and putting our heads together and youre going to kill me. He requested to eat his dinner in his room. S/I, H/I: Pt Denies A/VH: Pt denies Sleep: A Few naps through the day ADL's: Independent Group attendance: No Were meds taken: Yes Any med S/E: None noted Mental Status Exam Appearance: Disheveled but wearing his own clothes. Eye contact: Fair Behavior: Isolative, paranoid. Quiet. Speech: Quiet, mumbled Mood: Guarded Affect: Flat Thought process: Unable to assess Thought content: Unable to assess Cognition: Alert Insight: Poor Judgment: Poor Interventions PRN's used: Nicotine Lozenge x 2, Tylenol for muscle pain, Klonopin Therapeutic interventions: maintained a safe and supportive environment, provided clear and simple instructions, monitored behavior and need for intervention, and maintained Q 15min safety checks. Restraints/seclusion/emergency medication: N/A Justification of Continued Inpatient Treatment: Pt. requires interruption of current crisis, medication adjustments, and a safe and supportive environment. Per Dr. Abebe, discharge will be home vs the [facility]
[2020-08-11] MEDS: traZODone 50mg tablet PO SCH (20:32)
--- NOTE | 2020-08-11 23:55 | NUR ---
Nursing Progress Note: Legal hold: 5250 Client on involuntary status for GD Report received from LYNN Ruiz with use of SBAR: Why are they here: Patient is a 34-year-old male with a history of anxiety, bipolar disorder, and schizophrenia who presented to the ED complaining of being anxious and agitated. Patient stated that he has been "walking for 3 days and 3 nights." He denies any alcohol use prior to coming into the ED However he does report smoking marijuana and thinks that this marijuana and that "cigarettes [he] smoked off the ground" were laced with a drug. Patient admitted to auditory hallucination and stated that he is unable to control these voices and that they will speak through his mouth. Assessment What has happened this shift: Pt was asleep at change of shift. He would not wake up for vitals. Pt did wake up at approx 8 pm and stated, "I'm too tired to do anything." Pt denies being suicidal and denies hallucinations but was seen talking to himself in the hallway. Pt mostly isolated to his room, not coming out for snack. All HS medications were taken with no issue. S/I, H/I: Pt Denies A/VH: Pt denies Sleep: see sleep assessment ADL's: Independent Group attendance: No Were meds taken: Yes Any med S/E: None noted Mental Status Exam Appearance: Disheveled but wearing his own clothes. Eye contact: poor Behavior: Isolative. Quiet. Speech: Quiet, mumbled Mood: Guarded Affect: Flat Thought process: Unable to assess Thought content: Unable to assess Cognition: Alert Insight: Poor Judgment: Poor Interventions PRN's used: Therapeutic interventions: maintained a safe and supportive environment, provided clear and simple instructions, monitored behavior and need for intervention, and maintained Q 15min safety checks. Restraints/seclusion/emergency medication: N/A Justification of Continued Inpatient Treatment: Pt. requires interruption of current crisis, medication adjustments, and a safe and supportive environment. Per Dr. Abebe, discharge will be home vs the [facility]
[2020-08-12 07:27] VITALS: BP 109/74
[2020-08-12] MEDS: lithium carbonate 150mg capsule PO SCH ×2 (08:07→19:39)
[2020-08-12] MEDS: PALIPERIDONE 3 MG TAB.ER.24 PO SCH (08:07)
[2020-08-12] MEDS: clonazePAM 1mg tablet PO SCH ×2 (08:07→19:38)
[2020-08-12] MEDS: divalproex sodium 500mg tablet.DR PO SCH ×2 (08:07→19:40)
[2020-08-12] MEDS: clonazePAM 1mg tablet PO PRN (11:28)
--- NOTE | 2020-08-12 11:30 | NUR ---
Pt in his room with headphones on making loud threats at someone named Gil. This nurse offered him clonazepam he agreed to take 2mg. When this nurse asked him if he took it he said, "No, I gave it to Gil, Gil took it." Pt on his bed resting with the headphones on.
[2020-08-12] MEDS: NICOTINE POLACRILEX 2 MG LOZENGE BC PRN (12:11)
[2020-08-12] MEDS: haloperidol 5mg tablet PO SCH ×3 (12:11→21:10)
[2020-08-12] MEDS: LORazepam 1 MG tablet PO SCH ×3 (12:11→21:10)
--- NOTE | 2020-08-12 17:45 | NUR ---
Nursing Progress Note: Legal hold: 5250 Client on involuntary status for GD Report received from RN with use of SBAR: Why are they here: Patient is a 34-year-old male with a history of anxiety, bipolar disorder, and schizophrenia who presented to the ED complaining of being anxious and agitated. Patient stated that he has been "walking for 3 days and 3 nights." He denies any alcohol use prior to coming into the ED However he does report smoking marijuana and thinks that this marijuana and that "cigarettes [he] smoked off the ground" were laced with a drug. Patient admitted to auditory hallucination and stated that he is unable to control these voices and that they will speak through his mouth. Assessment What has happened this shift: Received Pt in bed sleeping w/o distress at beginning of shift. Pt awoke and was cooperative with vitals, AM meds and morning assessments, although diffucult to understand at times as he mumbles. Pt given cranberry juice per his request with noon meds and he walked the halls listening to headphones. Pt became increasingly irritable in AM and received klonopin PRN. Pt became irritated in afternoon, demanding a neonatal social worker from [facility]. Pt has angry expression and was sitting on edge of bed saying you mother F@*king Marlon and Conrado are the same and other angry and seemingly bizzare statements. S/I, H/I: Denies A/VH: Denies Sleep: A Few naps through the day ADL's: Independent Group attendance: No groups today Were meds taken: Yes Any med S/E: None noted Mental Status Exam Appearance: Disheveled but wearing his own clothes. Eye contact: Fair Behavior: Isolative, paranoid Speech: Angry, mumbled Mood: Guarded Affect: Flat Thought process: Delusional Thought content: Angry at SWs and others Cognition: Alert, tired Insight: Poor Judgment: Poor Interventions PRN's used: Nicotine Lozenge, Klonopin Therapeutic interventions: maintained a safe and supportive environment, provided clear and simple instructions, monitored behavior and need for intervention, and maintained Q 15min safety checks. Restraints/seclusion/emergency medication: N/A Justification of Continued Inpatient Treatment: Pt. requires interruption of current crisis, medication adjustments, and a safe and supportive environment. Per Dr. Abebe, discharge will be home vs the [facility]
[2020-08-12] MEDS: traZODone 50mg tablet PO SCH (19:39)
[2020-08-12 20:40] VITALS: BP 108/56
--- NOTE | 2020-08-13 00:32 | NUR ---
Nursing Progress Note: Legal hold: 5250 Client on involuntary status for GD Report received from Sara BAILEY with use of SBAR: Why are they here: Patient is a 34-year-old male with a history of anxiety, bipolar disorder, and schizophrenia who presented to the ED complaining of being anxious and agitated. Patient stated that he has been "walking for 3 days and 3 nights." He denies any alcohol use prior to coming into the ED However he does report smoking marijuana and thinks that this marijuana and that "cigarettes [he] smoked off the ground" were laced with a drug. Patient admitted to auditory hallucination and stated that he is unable to control these voices and that they will speak through his mouth. Assessment What has happened this shift: Pt was in bed at the start of the shift talking to him self. He got up just before snack time and was standing in front of the nursing station talking to the window. Pt showed no agitation this shift he was med compliant. Asked for some Cranberry juice after med pass stating it helps clear his throat after taking medication. S/I, H/I: Denies A/VH: Denies but clearly responding to internal stimuli Sleep: A Few naps through the day ADL's: Independent Group attendance: No groups today Were meds taken: Yes Any med S/E: None noted Mental Status Exam Appearance: Disheveled but wearing his own clothes. Eye contact: Fair Behavior: Isolative, paranoid Speech: Angry, mumbled Mood: Guarded Affect: Flat Thought process: Delusional Thought content: Angry at SWs and others Cognition: Alert, tired Insight: Poor Judgment: Poor Interventions PRN's used: Therapeutic interventions: maintained a safe and supportive environment, provided clear and simple instructions, monitored behavior and need for intervention, and maintained Q 15min safety checks. Restraints/seclusion/emergency medication: N/A Justification of Continued Inpatient Treatment: Pt. requires interruption of current crisis, medication adjustments, and a safe and supportive environment. Per Dr. Abebe, discharge will be home vs the [facility]
[2020-08-13] MEDS: clonazePAM 1mg tablet PO SCH ×2 (08:30→19:44)
[2020-08-13] MEDS: PALIPERIDONE 3 MG TAB.ER.24 PO SCH (08:31)
[2020-08-13] MEDS: divalproex sodium 500mg tablet.DR PO SCH ×2 (08:31→19:45)
[2020-08-13] MEDS: lithium carbonate 150mg capsule PO SCH ×2 (11:08→19:44)
[2020-08-13] MEDS: haloperidol 5mg tablet PO SCH (11:59)
[2020-08-13] MEDS: LORazepam 1 MG tablet PO SCH (11:59)
[2020-08-13] MEDS: NICOTINE POLACRILEX 2 MG LOZENGE BC PRN (13:47)
--- NOTE | 2020-08-13 14:05 | NUR ---
Nursing Progress Note: Legal hold: 5250 Client on involuntary status for GD Report received from RN with use of SBAR: Why are they here: Patient is a 34-year-old male with a history of anxiety, bipolar disorder, and schizophrenia who presented to the ED complaining of being anxious and agitated. Patient stated that he has been "walking for 3 days and 3 nights." He denies any alcohol use prior to coming into the ED However he does report smoking marijuana and thinks that this marijuana and that "cigarettes [he] smoked off the ground" were laced with a drug. Patient admitted to auditory hallucination and stated that he is unable to control these voices and that they will speak through his mouth. Assessment What has happened this shift: Received Pt in bed sleeping w/o distress at beginning of shift. Pt was unarousable when breakfast arrived, but was able to be awaken for medications, then he went and got breakfast. Pt returned to bed after breakfast and spent much of the day resting or sleeping in bed. Around 1100 pt requested and received some juice, then about 30 minutes later, pt was outside of nurses station banging his head against the wall hard enough to dent the wall. Staff intervened and walked pt to his room. Once on his bed, pt began yelling and cussing at nurse and was saying, fuck you! . . . I dont want to live anymore. Pt reassured that he was safe but that he could not talk to staff with the threats and disrespect. After about 5 minutes, pt calmed down and took his scheduled Ativan and Haldol. Pt said the voices were telling him to bang his head. S/I, H/I: Denies A/VH: Denies Sleep: A Few naps through the day ADL's: Independent Group attendance: No Were meds taken: Yes Any med S/E: None noted Mental Status Exam Appearance: Disheveled but wearing his own clothes. Eye contact: Fair Behavior: Isolative, paranoid Speech: Angry, mumbled Mood: Guarded Affect: Flat Thought process: Delusional Thought content: Angry at SWs and others Cognition: Alert, tired Insight: Poor Judgment: Poor Interventions PRN's used: Nicotine Lozenge Therapeutic interventions: maintained a safe and supportive environment, provided clear and simple instructions, monitored behavior and need for intervention, and maintained Q 15min safety checks. Restraints/seclusion/emergency medication: N/A Justification of Continued Inpatient Treatment: Pt. requires interruption of current crisis, medication adjustments, and a safe and supportive environment. Per Dr. Abebe, discharge will be home vs the [facility]
--- NOTE | 2020-08-13 15:18 | NUR ---
CM-Linkages Presenting Issues: Pt continues to exhibit significant sxs associated with a SMI and impairing pt's ability to adjust to milieu routines. Pt continue to isolate himself from others, is highly impulsive and struggles to socialize with others. Interventions: SS had t/c with [facility] medical services assistant re LPS conservatorship referral and the time frame for LPS referral, per t/c, SS completed referral for LPS conservatorship and consulted w/attending physician-Dr. Abebe who signed it and SS faxed it to [facility] for review. SS also received t/c from pt's mother who requested that pt be put back on Clozapine as it "helped him with the voices". Per mother's report, pt was recently @ [facility], where he was taking Clozapine but for some reason pt is no longer taking Clozapine. Pt's mother informed SS that the combination of Clozapine & Invega Sustenna was most helpful for pt w/re to his auditory hallucinations. Per mother, pt's trailer is now in the same trailer park as hers and it is clean, has running hot & cold water, when pt returns she will fill up his propane tank. Plan: SS will consult w/attending physician w/re to meds. Irish Gonzalez LCSW Addendum: 08/13/20 at 1612 by Irish Gonzalez Amended: Links added.
[2020-08-13] MEDS ORDERED: ALPRAZolam 0.5mg tablet PO ONE (15:35)
[2020-08-13] MEDS: ALPRAZolam 0.5mg tablet PO SCH ×2 (18:43→19:43)
[2020-08-13 19:26] VITALS: BP 138/92
[2020-08-13] MEDS: traZODone 50mg tablet PO SCH (19:45)
[2020-08-13] MEDS: ALPRAZolam 0.5mg tablet PO PRN (21:34)
--- NOTE | 2020-08-14 00:08 | NUR ---
Nursing Progress Note: Legal hold: 5250 Client on involuntary status for GD Report received from RN with use of SBAR: Why are they here: Patient is a 34-year-old male with a history of anxiety, bipolar disorder, and schizophrenia who presented to the ED complaining of being anxious and agitated. Patient stated that he has been "walking for 3 days and 3 nights." He denies any alcohol use prior to coming into the ED However he does report smoking marijuana and thinks that this marijuana and that "cigarettes [he] smoked off the ground" were laced with a drug. Patient admitted to auditory hallucination and stated that he is unable to control these voices and that they will speak through his mouth. Assessment What has happened this shift: Patient up and pacing the huff with headphone on at shift change. Pt was responding to internal stimuli talking to him selff and punching at his reflection in the nurses station window. agitated most of the shift he Refused his Depakote Klonopin,and Ativan Prn Xanax was given with some help.Pt was finally able to lye down and fall asleep. S/I, H/I: Denies A/VH: Denies Sleep: A Few naps through the day ADL's: Independent Group attendance: No Were meds taken: Yes Any med S/E: None noted Mental Status Exam Appearance: Disheveled but wearing his own clothes. Eye contact: Fair Behavior: Isolative, paranoid Speech: Angry, mumbled Mood: Guarded Affect: Flat Thought process: Delusional Thought content: Angry at SWs and others Cognition: Alert, tired Insight: Poor Judgment: Poor Interventions PRN's used: Xanax Therapeutic interventions: maintained a safe and supportive environment, provided clear and simple instructions, monitored behavior and need for intervention, and maintained Q 15min safety checks. Restraints/seclusion/emergency medication: N/A Justification of Continued Inpatient Treatment: Pt. requires interruption of current crisis, medication adjustments, and a safe and supportive environment. Per Dr. Abebe, discharge will be home vs the [facility]
[2020-08-14] MEDS: ALPRAZolam 0.5mg tablet PO PRN ×4 (02:45→22:39)
[2020-08-14] MEDS: PALIPERIDONE 3 MG TAB.ER.24 PO PRN ×2 (02:47→10:23)
[2020-08-14 07:35] VITALS: BP 121/65
[2020-08-14] MEDS: PALIPERIDONE 3 MG TAB.ER.24 PO SCH (07:50)
[2020-08-14] MEDS: lithium carbonate 150mg capsule PO SCH ×2 (07:50→20:13)
[2020-08-14] MEDS: clonazePAM 1mg tablet PO SCH (08:00)
[2020-08-14] MEDS: divalproex sodium 500mg tablet.DR PO SCH ×2 (08:00→20:13)
--- NOTE | 2020-08-14 10:00 | NUR ---
Group Therapy: Process Group This Clinicians goals for this process group were as follows: (1) Ask scaling questions about Patients current anxiety, depression, and irritability symptoms as a check-in. (2) Share with Patients psychoeducation about the importance of being able to identify safe, and supportive people who can assist them with their mental and emotional needs. (3) Share psychoeducation on interpersonal boundaries and considerations to assist Patients in developing the ability to discern which groups and individuals will be helpful in assisting them during times of emotional escalation and crisis. (4) Engage Patients in discussion of the topics discussed within the group milieu. Patient presented as properly oriented to person and place during the process group. Patient was dressed in nondescript, personal clothing that were appropriate within the milieu. Patient occasionally walked into the group milieu and remained standing in the back of the process group. On one occasion, he had head phones on as he entered. Patient did not participate verbally in the process group discussion on interpersonal boundaries, or on establishing a [place] of trust of supportive people to whom he could share personal information about his mental health history. As Patient did not talk, this Clinician was unable to assess his thought content or process. Patient presented as nonobtrusive during his brief moments in the process group. Bryant Dempsey MA, ANIL Addendum: 08/14/20 at 1118 by Bryant Dempsey Amended: Links added.
[2020-08-14] MEDS: NICOTINE POLACRILEX 2 MG LOZENGE BC PRN ×4 (10:23→22:39)
[2020-08-14] MEDS: ALPRAZolam 0.5mg tablet PO SCH ×3 (12:36→20:14)
[2020-08-14] MEDS ORDERED: paliperidone palmitate 156 mg/ml inj.**IM only IM ONE (12:40)
[2020-08-14] MEDS: acetaminophen 325mg tablet PO PRN (14:21)
[2020-08-14] MEDS ORDERED: divalproex 250mg tablet, delayed-release PO ONE (14:30)
--- NOTE | 2020-08-14 15:56 | NUR ---
Nursing Progress Note: Legal hold: 5250 Client on involuntary status for GD Report received from Ros BAILEY with use of SBAR: Why are they here: Patient is a 34-year-old male with a history of anxiety, bipolar disorder, and schizophrenia who presented to the ED complaining of being anxious and agitated. Patient stated that he has been "walking for 3 days and 3 nights." He denies any alcohol use prior to coming into the ED However he does report smoking marijuana and thinks that this marijuana and that "cigarettes [he] smoked off the ground" were laced with a drug. Patient admitted to auditory hallucination and stated that he is unable to control these voices and that they will speak through his mouth. Assessment What has happened this shift: Received patient sleeping in bed. Patient awoken for medications and then he came to breakfast on time. Patient spent much of the day pacing in the hallways listening to headphones responding to internal stimuli quietly. Patient did refuse his Depakote and klonopin this morning. As the morning went on, patient was responding more and more to internal stimuli and getting more agitated. At a.m. snacktime, just after 11 AM, patient was cursing and yelling at staff member. Patient given space in his room and he seem to calm down for a while. Later, patient came to nurse and asked for a PRN to help him calm down. Patient offered and he took Invega, Xanax and a nicotine lozenge. Mental health commercial service technician overheard patient in his room saying he threw up his medication and that he wanted to rip the nurses head off when questioned a little later, patient stated he only spit up the nicotine lozenge because it was making him feel sick. Dr Abebe came in a bit later and met with nurse and patient together. Med changes were agreed upon and later patient did receive and tolerate well a second loading dose of Invega Sustenna. Patient remains extremely psychotic making bizarre/delusional statements. Patient remains very paranoid thinking staff are going to harm him. S/I, H/I: Denies A/VH: Denies Sleep: A Few naps through the day ADL's: Independent Group attendance: No Were meds taken: Yes Any med S/E: None noted Mental Status Exam Appearance: Disheveled but wearing his own clothes. Eye contact: Fair Behavior: Isolative, paranoid Speech: Angry, mumbled Mood: Guarded Affect: Flat Thought process: Delusional Thought content: Angry at SWs and others Cognition: Alert, tired Insight: Poor Judgment: Poor Interventions PRN's used: Xanax, Nicotine Lozenge Therapeutic interventions: maintained a safe and supportive environment, provided clear and simple instructions, monitored behavior and need for intervention, and maintained Q 15min safety checks. Restraints/seclusion/emergency medication: N/A Justification of Continued Inpatient Treatment: Pt. requires interruption of current crisis, medication adjustments, and a safe and supportive environment. Per Dr. Abebe, discharge will be home vs the [facility]
[2020-08-14 20:25] VITALS: BP 120/85
[2020-08-14] MEDS: traZODone 50mg tablet PO SCH (21:00)
--- NOTE | 2020-08-14 22:41 | NUR ---
Nursing Progress Note: Legal hold: 5250 Client on involuntary status for GD Report received from Sara BAILEY with use of SBAR: Why are they here: Patient is a 34-year-old male with a history of anxiety, bipolar disorder, and schizophrenia who presented to the ED complaining of being anxious and agitated. Patient stated that he has been "walking for 3 days and 3 nights." He denies any alcohol use prior to coming into the ED However he does report smoking marijuana and thinks that this marijuana and that "cigarettes [he] smoked off the ground" were laced with a drug. Patient admitted to auditory hallucination and stated that he is unable to control these voices and that they will speak through his mouth. Assessment What has happened this shift: Patient was pacing the huff with headphones on at change of shift. Pt responding to internal stimuli and paranoid of staff. Pt asked for his nicotine lozenge prn and his 0 meds given. Pt hung out in his room till snack time and hs meds were given. Pt asked for prn Xanax and another nicotine lozenge around 2229 and went back to his room where he sits in his chair talking to him self. S/I, H/I: Denies A/VH: Denies Sleep: A Few naps through the day ADL's: Independent Group attendance: No Were meds taken: Yes Any med S/E: None noted Mental Status Exam Appearance: Disheveled but wearing his own clothes. Eye contact: Fair Behavior: Isolative, paranoid Speech: Angry, mumbled Mood: Guarded Affect: Flat Thought process: Delusional Thought content: Angry at SWs and others Cognition: Alert, tired Insight: Poor Judgment: Poor Interventions PRN's used: Xanax, Nicotine Lozenge Therapeutic interventions: maintained a safe and supportive environment, provided clear and simple instructions, monitored behavior and need for intervention, and maintained Q 15min safety checks. Restraints/seclusion/emergency medication: N/A Justification of Continued Inpatient Treatment: Pt. requires interruption of current crisis, medication adjustments, and a safe and supportive environment. Per Dr. Abebe, discharge will be home vs the [facility]
[2020-08-15] MEDS: NICOTINE POLACRILEX 2 MG LOZENGE BC PRN ×3 (02:21→15:47)
[2020-08-15] MEDS: ALPRAZolam 0.5mg tablet PO PRN ×2 (02:48→16:46)
[2020-08-15] MEDS: PALIPERIDONE 3 MG TAB.ER.24 PO PRN (02:51)
[2020-08-15] MEDS: divalproex sodium 500mg tablet.DR PO SCH ×2 (07:24→19:30)
[2020-08-15] MEDS: PALIPERIDONE 3 MG TAB.ER.24 PO SCH (07:25)
[2020-08-15] MEDS: ALPRAZolam 0.5mg tablet PO SCH ×4 (07:25→21:00)
[2020-08-15] MEDS: lithium carbonate 150mg capsule PO SCH ×2 (07:25→19:33)
[2020-08-15 07:35] VITALS: BP 126/84
--- NOTE | 2020-08-15 15:50 | NUR ---
1:1-Solution Focused Presenting Issues: Pt requested to meet w/SS re his dcp. While pt's not quite ready for d/c yet, his interest in formulating a dcp is Interventions: SS met w/pt & provided 1:1 support via Solution Focused Brief Interventions and engaged pt in pre-dcp activities. Pt expressed desires to avoid conservatorship, SS facilitated pt's exploration of his thoughts & emotions associated w/conservatorship, pt able to process past experiences with conservatorship and reports, "I'm not that sick right now, I don't need to be conserved right now." SS informed pt about the concerns that prompted a referral for LPS conservatorship-multiple readmissions- pt did not deny this point but asked, "well what can I do to not get conserved?" SS engaged pt in reviewing & processing what happened that led to this re-admission to identify changes that pt needs to make following d/c from [facility] to address readmission concerns. Per session, pt was able to note that he struggles with managing his meds, and forgets to take them for days and when he remembers to resume taking them he was often confused. Pt also willing to have his mother manage & administer his meds this time. SS also asked pt about support from his outpatient service providers, pt willing to participate in [facility] services so long as he gets a new CM. Plan: In the event that [facility] decides no to pursue LPS conservatorship pt will d/c home and follow-up with [facility]. SS will request STAR & field-based medication support. Irish Gonzalez LCSW Addendum: 08/16/20 at 0949 by Irish Gonzalez Amended: Links added.
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
[2020-08-15] MEDS ORDERED: acetaminophen 325mg tablet PO ONE ×3 (19:10→21:00)
[2020-08-15 20:00] VITALS: BP 140/95
[2020-08-15] MEDS: traZODone 50mg tablet PO SCH (21:00)
[2020-08-16] MEDS: ALPRAZolam 0.5mg tablet PO PRN (00:04)
--- NOTE | 2020-08-16 00:04 | NUR ---
pt agitated yelling at his nurse to get out of his room and refusing evening meds. Pt then asked for xanax but is refusing the paliperidone with the dose for agitation so he only took the ordered amount of prn xanax for agitation. Pending effect at this time. Pt then states "tell that big dez to get in here and give me a shot!" Pt is sitting in his room RIS having multiple outbursts.
--- NOTE | 2020-08-16 02:19 | NUR ---
Nursing Progress Note: Legal hold: 5250 Client on involuntary status for GD Report received from nurse with use of SBAR: LYNN Sommer Why are they here: Patient is a 34-year-old male with a history of anxiety, bipolar disorder, and schizophrenia who presented to the ED complaining of being anxious and agitated. Patient stated that he has been "walking for 3 days and 3 nights." He denies any alcohol use tonight. However he does report smoking marijuana today and thinks that this marijuana and that "cigarettes [he] smoked off the ground" were laced with a drug. Patient admitted to auditory hallucination and stated that he is unable to control these voices and that they will speak through his mouth. Assessment What has happened this shift: Patient resides in his room following shift change. Patient leaves his room with requests for food and medicine. Early in evening patient patient is mildly delusional but cooperative. In late evening marta exhibits paranoia, he believes the police are watching him right now, in addition patient tells this typewriter operator automatic "they are watching you too." The patient screams in his room in early am. When checking on the patients screaming, the patient tells this typewriter operator automatic to "get the fuck out of my room." As a different approach the network control operators supervisor Ros steps in and administers patient a Xanax. The patient later walks the hallway for a short time. Patient also uses his hand in a gun shape to point at this typewriter operator automatic. Patient exhibits labile behavior intermittently. Gradually patient retires to sleep. . S/I, H/I: Denies. A/VH: Ongoing A/V/HOUSE, pt. refuses to discuss. Sleep: Will tally at 0500 hours. ADL's: Requires some direction. Group attendance: No group on nights. Were meds taken: Yes, some with hesitation. Any med S/E: None. Mental Status Exam Appearance: Disheveled. Eye contact: Good, occasionally with a strong glare. Behavior: Cooperative, anxious, agitated, impulsive, guarded, and withdrawn. Speech: Mumbled and difficult to understand at times, pressured and loud when agitated Mood: Guarded and anxious. Affect: Labile. Thought process: Tangental. difficult to interpret as patient is uncooperative. Thought Content: A/V/HOUSE and paranoid delusions. Cognition: A&O to person and place only. Insight: Poor Judgment: Poor Interventions PRN's used: Xanax. Therapeutic interventions: Ensured contract for safety, maintained a safe and supportive environment, provided clear and simple instructions, monitored behavior and need for intervention, provided redirection and de-escalation as needed, and maintained Q 15min safety checks. Restraints/seclusion/emergency medication: N/A Justification of Continued Inpatient Treatment: Pt. requires interruption of current crisis, medication adjustments, and a safe and supportive environment. Per Dr. Abebe, discharge will be home vs the [facility]. Addendum: 08/16/20 at 0325 by Jamar Kerns RN Report at shift change was received from LYNN Ozuna, not LYNN Sommer.
[2020-08-16 08:00] VITALS: BP 112/52
[2020-08-16] MEDS: ALPRAZolam 0.5mg tablet PO SCH ×5 (08:32→20:16)
[2020-08-16] MEDS: lithium carbonate 150mg capsule PO SCH ×2 (08:32→20:17)
[2020-08-16] MEDS: PALIPERIDONE 3 MG TAB.ER.24 PO SCH (08:32)
[2020-08-16] MEDS: divalproex sodium 500mg tablet.DR PO SCH ×2 (08:32→20:17)
[2020-08-16] MEDS ORDERED: acetaminophen 325mg tablet PO PRN (10:55)
[2020-08-16] MEDS: NICOTINE POLACRILEX 2 MG LOZENGE BC PRN ×3 (11:07→21:15)
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
[2020-08-16] MEDS: haloperidol 5mg tablet PO SCH ×3 (12:48→20:17)
--- NOTE | 2020-08-16 13:15 | NUR ---
CM- Consultation Presenting Issues: Pt continues to endorse paranoid delusions of a violent nature despite high level of antipsychotics. Interventions: SS met w/attending physician and discussed pt's slow progress. Per discussion, attending physician will continue to work with the meds but recommends that SS advocate for intensive outpatient support for pt upon d/c. Plan: SS will continue to monitor pt's progress and engage [facility] in dcp activities. Irish Gonzalez LCSW Addendum: 08/16/20 at 1613 by Irish Gonzalez Amended: Links added.
--- NOTE | 2020-08-16 13:54 | NUR ---
Reassessment: Pt PO 75-100% avg regular diet meeting needs. LBM 08/14. No nutrition concerns at this time. Will continue to monitor. Recommendations: 1) Continue regular diet 2) Bowel care per rx 3) Scaled weights per rx Addendum: 08/16/20 at [address] Amended: Links added.
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
--- NOTE | 2020-08-16 16:49 | NUR ---
1:1-Solution Focused Presenting Issues: Pt met w/[facility] team's clinicians and requested to see this SS. Interventions: SS met w/pt provided 1:1 support for pt to process his meeting w/STAR team clinicians, pt reports that he feels good and will work with them, "but I don't know what they do." SS educated pt on how the STAR team engage with their clients, pt seems to relax and states, "good then I made a good decision". Pt also asked about the [facility] and if that might be an option for him. SS utilized Motivational Interviewing and Solution Focused strategies and engaged pt in a discussion re his experiences @ [facility] the last time, pt was able to recall that he was not able to stay at [facility] and left after 3 days. When asked what is it about his experience there that made him leave, pt states, "well I'm a loud person, I have a loud voice, so I felt that I had to leave so other people there won't be scared of me and try to quiet me down." SS asked pt if he's loud all the time, pt able to note that he gets loud when the voices gets loud or when "I feel scared or threatened". SS asked pt if he feels that he's loud now, pt states "no, because you talk to me with respect". SS asked pt when he feels himself getting loud what usually helps him to better control his volume pt states, "I never had anyone ask me that before, now I'm going to have to think about that." SS asked pt to think about what he needs to help him lower his volume when he begins to get loud and SS will meet w/him tomorrow. Plan: [facility]AR team will engage with pt following d/c. SS will explore possibility of [facility] prior to home, continue 1:1 support. Irish Gonzalez LCSW Addendum: 10/29/20 at 1718 by Irish ANDINO Amended: Links added.
[2020-08-16 19:00] VITALS: BP 121/76
--- NOTE | 2020-08-17 03:56 | NUR ---
Nursing Progress Note: Legal hold: 5250 Client on involuntary status for GD Report received from LYNN Peralta with use of SBAR. Why are they here: Patient is a 34-year-old male with a history of anxiety, bipolar disorder, and schizophrenia who presented to the ED complaining of being anxious and agitated. Patient stated that he has been "walking for 3 days and 3 nights." He denies any alcohol use tonight. However he does report smoking marijuana today and thinks that this marijuana and that "cigarettes [he] smoked off the ground" were laced with a drug. Patient admitted to auditory hallucination and stated that he is unable to control these voices and that they will speak through his mouth. Assessment What has happened this shift: Following shift change a 1:1 interview was conducted at patients bedside. The patient was cooperative. Patient acknowledges his previous evening behavior of angry outbursts were wrong. The patient was offered a choice of anti anxiety medications that could be calming. At the request of Dr. Hess Seroquel or Elavil were offered as options. The patient states he will not take Trazadone for sleep, he then considers the Seroquel or Elavil offers and then declines both. The patient did eat dinner, snacks, watched television, he did not socialize with other patients. Later in his room the patient was observed talking out into the ether and responding to internal stimuli. The patient describes auditory and visual hallucinations but does not discuss either. The patient is less labile than the previous shift. . S/I, H/I: Denies. A/VH: Ongoing A/V/HOUSE, pt. refuses to discuss. Sleep: Will tally at 0500 hours. ADL's: Requires some direction. Group attendance: No group on nights. Were meds taken: yes, he did refuse Trazadone. See above note. Any med S/E: None. Mental Status Exam Appearance: Disheveled. Eye contact: Good. Behavior: Cooperative, impulsive, guarded, and withdrawn. Speech: Mumbled and difficult to understand at times, pressured and loud when agitated. Mood: Guarded with mild anxiety.. Affect: Flat. Thought process: Tangental. difficult to interpret as patient is uncooperative. Thought Content: A/V/HOUSE and paranoid delusions. Cognition: A&O to person and place only. Insight: Poor Judgment: Poor Interventions PRN's used: Nicotine. Therapeutic interventions: Ensured contract for safety, maintained a safe and supportive environment, provided clear and simple instructions, monitored behavior and need for intervention, provided redirection and de-escalation as needed, and maintained Q 15min safety checks. Restraints/seclusion/emergency medication: N/A
[2020-08-17] MEDS: NICOTINE POLACRILEX 2 MG LOZENGE BC PRN ×3 (07:11→20:57)
[2020-08-17] MEDS: haloperidol 5mg tablet PO SCH ×4 (07:11→20:45)
[2020-08-17] MEDS: divalproex sodium 500mg tablet.DR PO SCH ×2 (07:11→20:46)
[2020-08-17] MEDS: ALPRAZolam 0.5mg tablet PO SCH ×4 (07:11→20:45)
[2020-08-17] MEDS: lithium carbonate 150mg capsule PO SCH ×2 (07:11→20:50)
[2020-08-17] MEDS: PALIPERIDONE 3 MG TAB.ER.24 PO SCH (07:12)
[2020-08-17 08:00] VITALS: BP 113/67
[2020-08-17] MEDS: ALPRAZolam 0.5mg tablet PO PRN (13:55)
[2020-08-17] MEDS: haloperidol 5mg tablet PO PRN (13:55)
--- NOTE | 2020-08-17 16:54 | NUR ---
Nursing Progress Note: Legal hold: 5250 Client on involuntary status for GD Report received from nurse with use of SBAR: Ingrid Cabrera RN Why are they here: Patient is a 34-year-old male with a history of anxiety, bipolar disorder, and schizophrenia who presented to the ED complaining of being anxious and agitated. Patient stated that he has been "walking for 3 days and 3 nights." He denies any alcohol use tonight. However he does report smoking marijuana today and thinks that this marijuana and that "cigarettes [he] smoked off the ground" were laced with a drug. Patient admitted to auditory hallucination and stated that he is unable to control these voices and that they will speak through his mouth. Assessment What has happened this shift: Received pt. awake and pacing in the hallway at the beginning of the shift. He began responding agitatedly aloud to command A/HOUSE, yelling loudly, "Stand the fuck down!" Pt. was able to be redirected and walked to his room accompanied by several staff members. Pt. stated in a distressed manner, "The voices are telling me to yell aloud and hurt you guys, but I don't want to!" He goes on to report that the voice is dressed up as [employer]. Pt. also reports V/HOUSE of shadows and paranoid delusions that others want to hurt him. He denies S/I, however states, "I just wish someone would blow my head off sometimes to stop these voices!" He continues to deny any H/I, but admits that he is afraid that one day he might. AM medications and headphones provided with effectiveness. Pt. again displays increased anxiety, restlessness, and agitation as the day wears on. At approximately 1400, pt. becomes increasingly agitated and tearful and comes to find this newspaper writer. He requests medication, states, "Just give me anything! I got rid of the bad voice, but the evil one is still in me! I don't want to hurt anyone or yell!" PRN Xanax 2mg administered along with PRN Haldol as ordered with effectiveness. Endorsed to LUZMA Roldan, and will continue to monitor. S/I, H/I: Denies A/VH: Pt. reports command A/HOUSE and V/HOUSE Sleep: Pt. reports he did not sleep well, however sleep hours are 7 ADL's: Requires some direction Group attendance: No Were meds taken: Yes Any med S/E: None Mental Status Exam Appearance: Somewhat disheveled, however appropriately dressed Eye contact: Good, intense at times Behavior: Cooperative, anxious, restless agitated, impulsive, guarded, and withdrawn Speech: Mumbled and difficult to understand at times, pressured and loud when agitated Mood: Restless and agitated at times Affect: Labile Thought process: Tangental Thought Content: A/V/HOUSE and paranoid delusions Cognition: A&O X2 Insight: Poor Judgment: Poor Interventions PRN's used: Nicotine Lozenge Therapeutic interventions: Ensured contract for safety, maintained a safe and supportive environment, provided clear and simple instructions, monitored behavior and need for intervention, provided redirection and de-escalation as needed, , and maintained Q 15min safety checks. Restraints/seclusion/emergency medication: N/A Justification of Continued Inpatient Treatment: Pt. requires interruption of current crisis, medication adjustments, and a safe and supportive environment. Per Dr. Abebe, discharge will be home vs the [facility] with F/U by [facility].
[2020-08-17 19:00] VITALS: BP 126/80
--- NOTE | 2020-08-18 00:03 | NUR ---
Nursing Progress Note: Legal hold: 5250 Client on involuntary status for GD Report received from LYNN Peralta with use of SBAR. Why are they here: Patient is a 34-year-old male with a history of anxiety, bipolar disorder, and schizophrenia who presented to the ED complaining of being anxious and agitated. Patient stated that he has been "walking for 3 days and 3 nights." He denies any alcohol use tonight. However he does report smoking marijuana today and thinks that this marijuana and that "cigarettes [he] smoked off the ground" were laced with a drug. Patient admitted to auditory hallucination and stated that he is unable to control these voices and that they will speak through his mouth. Assessment Patient is observed ambulating around the unit. He eventually went to his room where he relaxed and listened to music on headphones. Patient will not discuss internal stimuli. As of the time of this writing there has been no labile activity. Patient complains of hunger and was given an extra sandwich. Patient took evening medications. He retired to sleep. What has happened this shift: Patient is awake and ambulating in the hallways following shift change. S/I, H/I: Denies. A/VH: Ongoing A/V/HOUSE, pt. refuses to discuss. Sleep: Will tally at 0500 hours. ADL's: Requires some direction. Group attendance: No group on nights. Were meds taken: Yes, medication compliant. Any med S/E: None. Mental Status Exam Appearance: Disheveled. Eye contact: Good. Behavior: Cooperative, impulsive, guarded, and withdrawn. Speech: Mumbled and difficult to understand at times. Mood: Guarded with mild anxiety.. Affect: Flat. Thought process: Tangental. difficult to interpret as patient is uncooperative. Thought Content: Patient will not discuss. Cognition: A&O to person and place only. Insight: Poor Judgment: Poor Interventions PRN's used: Nicotine. Therapeutic interventions: Ensured contract for safety, maintained a safe and supportive environment, provided clear and simple instructions, monitored behavior and need for intervention, provided redirection and de-escalation as needed, and maintained Q 15min safety checks. Restraints/seclusion/emergency medication: N/A
[2020-08-18 07:15] VITALS: BP 102/63
[2020-08-18] MEDS ORDERED: paliperidone palmitate 156 mg/ml inj.**IM only IM ONE (08:00)
[2020-08-18] MEDS: divalproex sodium 500mg tablet.DR PO SCH ×2 (08:25→21:00)
[2020-08-18] MEDS: lithium carbonate 150mg capsule PO SCH ×2 (08:26→21:01)
[2020-08-18] MEDS: haloperidol 5mg tablet PO SCH ×4 (08:26→21:00)
[2020-08-18] MEDS: ALPRAZolam 0.5mg tablet PO SCH ×4 (08:27→21:02)
[2020-08-18] MEDS: PALIPERIDONE 3 MG TAB.ER.24 PO SCH (08:35)
[2020-08-18] MEDS: NICOTINE POLACRILEX 2 MG LOZENGE BC PRN ×2 (10:30→21:01)
[2020-08-18] MEDS: ALPRAZolam 0.5mg tablet PO PRN (14:13)
--- NOTE | 2020-08-18 17:55 | NUR ---
Nursing Progress Note: Legal hold: 5250 Client on involuntary status for GD Report received from LYNN Peralta with use of SBAR. Why are they here: Patient is a 34-year-old male with a history of anxiety, bipolar disorder, and schizophrenia who presented to the ED complaining of being anxious and agitated. Patient stated that he has been "walking for 3 days and 3 nights." He denies any alcohol use tonight. However he does report smoking marijuana today and thinks that this marijuana and that "cigarettes [he] smoked off the ground" were laced with a drug. Patient admitted to auditory hallucination and stated that he is unable to control these voices and that they will speak through his mouth. Assessment What has happened this shift: Pt attends breakfast but refuses food tray and only wants something to drink. He took medications but when RN tried talking with him he states I dont want to talk about anything. He requested nicotine lozenge and later in the afternoon had an outburst in his room. When RN questioned he states the voices wont stop. RN gave Xanax PRN with good effect. Pt paced the huff with headphones on a few times but mostly isolated to his room. S/I, H/I: Pt refuses to answer. A/VH: Pt refuses to answer but responds to internal stimuli all day. Sleep: Took a few naps during the day. ADL's: Independent. Asked to shower today Group attendance: No. Were meds taken: Yes. Any med S/E: None noted. Mental Status Exam Appearance: Wearing his own clothes Eye contact: Fair. Behavior: Cooperative, but labile. Speech: Quiet and guarded. Mood: Internally anxious/irritable. Affect: Flat/blunted. Thought process: Unable to assess Thought Content: Unable to assess. Cognition: Alert. Insight: Poor Judgment: Poor Interventions PRN's used: Nicotine, Xanax. Therapeutic interventions: Ensured contract for safety, maintained a safe and supportive environment, provided clear and simple instructions, monitored behavior and need for intervention, provided redirection and de-escalation as needed, and maintained Q 15min safety checks. Restraints/seclusion/emergency medication: N/A
[2020-08-18 19:00] VITALS: BP 117/63
--- NOTE | 2020-08-18 23:55 | NUR ---
Nursing Progress Note: Legal hold: 5250 Client on involuntary status for GD Report received from LYNN Peralta with use of SBAR. Why are they here: Patient is a 34-year-old male with a history of anxiety, bipolar disorder, and schizophrenia who presented to the ED complaining of being anxious and agitated. Patient stated that he has been "walking for 3 days and 3 nights." He denies any alcohol use tonight. However he does report smoking marijuana today and thinks that this marijuana and that "cigarettes [he] smoked off the ground" were laced with a drug. Patient admitted to auditory hallucination and stated that he is unable to control these voices and that they will speak through his mouth. Assessment What has happened this shift: Patient self isolates in his room listening to music on headphones. Patient looks to be responding to internal stimuli. No outbursts this shift. Patient ate dinner and a sandwich. Patient will not discuss voices or hallucinations. Patient is reasonably cooperative. S/I, H/I: Pt refuses to answer. A/VH: Pt refuses to answer but responds to internal stimuli this night. Sleep: Sleeping well, will tally in late am. ADL's: Independent. With some direction. Group attendance: No. Were meds taken: Yes. Any med S/E: None noted or observed. Mental Status Exam Appearance: Wearing street clothes. Eye contact: Fair. Behavior: Cooperative, not labile this night. Speech: Quiet and guarded. Mood: Internally anxious/irritable. Affect: Flat/blunted. Thought process: Unable to assess. Thought Content: Unable to assess. Cognition: Alert. Insight: Poor. Judgment: Poor. Interventions PRN's used: None. Therapeutic interventions: Ensured contract for safety, maintained a safe and supportive environment, provided clear and simple instructions, monitored behavior and need for intervention, provided redirection and de-escalation as needed, and maintained Q 15min safety checks. Restraints/seclusion/emergency medication: N/A
[2020-08-19 07:30] VITALS: BP 106/68
[2020-08-19] MEDS: lithium carbonate 150mg capsule PO SCH ×2 (08:51→20:12)
[2020-08-19] MEDS: haloperidol 5mg tablet PO SCH ×4 (08:51→20:12)
[2020-08-19] MEDS: divalproex sodium 500mg tablet.DR PO SCH ×2 (08:51→20:12)
[2020-08-19] MEDS: ALPRAZolam 0.5mg tablet PO SCH ×4 (08:52→20:12)
--- NOTE | 2020-08-19 17:26 | NUR ---
Nursing Progress Note: Legal hold: 5250 Client on involuntary status for GD Report received from LYNN Peralta with use of SBAR. Why are they here: Patient is a 34-year-old male with a history of anxiety, bipolar disorder, and schizophrenia who presented to the ED complaining of being anxious and agitated. Patient stated that he has been "walking for 3 days and 3 nights." He denies any alcohol use tonight. However he does report smoking marijuana today and thinks that this marijuana and that "cigarettes [he] smoked off the ground" were laced with a drug. Patient admitted to auditory hallucination and stated that he is unable to control these voices and that they will speak through his mouth. Assessment What has happened this shift: Pt. asleep at start of shift. Pt. woken up for breakfast and medications but states, Come back later. Pt. awoke later to eat breakfast. When offered medications pt. was agitated but took medications willingly. 1:1 done at bedside, pt. denies SI/HI, but reports hearing voices, pt. does not discuss voices, but states, They are loud and get on my nerves! Pt. has low frustration tolerance. Pt. guarded during interview. Pt. pacing hallways, sometimes becomes loud and cruses but can be re-directed. S/I, H/I: Pt refuses to answer. A/VH: Yes, pt. reports loud, degrading voices Sleep: Napped intermittently throughout the day. ADL's: Independent. Asked to shower today. Group attendance: No. Were meds taken: Yes. Any med S/E: Denies Mental Status Exam Appearance: Clean but disheveled, wearing street clothes. Eye contact: Fair. Behavior: Isolative, pacing in halls at times and looking and signs and pictures, talking to himself, sometimes loudly with outbursts of swearing. Speech: Quiet and guarded. Mood: Labile. Affect: Flat/blunted. Thought process: Unable to assess Thought Content: Unable to assess. Cognition: Alert. Insight: Poor Judgment: Poor Interventions PRN's used: Nicotine, Xanax. Therapeutic interventions: Ensured contract for safety, maintained a safe and supportive environment, provided clear and simple instructions, monitored behavior and need for intervention, provided redirection and de-escalation as needed, and maintained Q 15min safety checks. Restraints/seclusion/emergency medication: N/A
[2020-08-19 19:13] VITALS: BP 103/64
--- NOTE | 2020-08-20 00:35 | NUR ---
Nursing Progress Note: Legal hold: 5250 Client on involuntary status for GD Report received from LYNN Peralta with use of SBAR. Why are they here: Patient is a 34-year-old male with a history of anxiety, bipolar disorder, and schizophrenia who presented to the ED complaining of being anxious and agitated. Patient stated that he has been "walking for 3 days and 3 nights." He denies any alcohol use tonight. However he does report smoking marijuana today and thinks that this marijuana and that "cigarettes [he] smoked off the ground" were laced with a drug. Patient admitted to auditory hallucination and stated that he is unable to control these voices and that they will speak through his mouth. Assessment What has happened this shift: The patient was seen at bedside for 1:1. He reluctantly removed the headphones. The patient is disheveled and odorous, clearly responding to the "voices." He does not discuss what they say to him, but he does state that they are "very annoying." He continues to isolate, but paces when out of his room. He has been quiet tonight, not shown any agitation. S/I, H/I: Denies. A/VH: +AH. Sleep: See sleep assessment. ADL's: Independent with prompting. Group attendance: No. Were meds taken: Yes. Any med S/E: None reported or observed. Mental Status Exam Appearance: Disheveled, unclean, smelly, wearing street clothes. Eye contact: Fair. Behavior: Cooperative, guarded, isolative, delusional. Speech: Quiet and guarded. Mood: Indifferent. Affect: Blunted. Thought process: Unable to assess. Thought Content: Unable to assess. Cognition: Alert. Insight: Poor. Judgment: Poor. Interventions PRN's used: None. Therapeutic interventions: Ensured contract for safety, maintained a safe and supportive environment, provided clear and simple instructions, monitored behavior and need for intervention, provided redirection and de-escalation as needed, and maintained Q 15min safety checks. Restraints/seclusion/emergency medication: N/A Justification of Continued Inpatient Treatment: Pt. requires interruption of current crisis, medication adjustments, and a safe and supportive environment. Per Dr. Abebe, discharge will be home vs the [facility].
[2020-08-20 07:30] VITALS: BP 108/57
[2020-08-20] MEDS: lithium carbonate 150mg capsule PO SCH ×2 (07:37→20:06)
[2020-08-20] MEDS: ALPRAZolam 0.5mg tablet PO SCH ×4 (07:37→20:06)
[2020-08-20] MEDS: divalproex sodium 500mg tablet.DR PO SCH ×2 (07:37→20:06)
[2020-08-20] MEDS: haloperidol 5mg tablet PO SCH ×4 (07:38→20:06)
[2020-08-20] MEDS: NICOTINE POLACRILEX 2 MG LOZENGE BC PRN ×2 (09:38→20:05)
[2020-08-20] MEDS: ALPRAZolam 0.5mg tablet PO PRN ×2 (11:57→21:38)
--- NOTE | 2020-08-20 18:00 | NUR ---
Nursing Progress Note: Legal hold: 5250 Client on involuntary status for GD Report received from LYNN Peralta with use of SBAR. Why are they here: Patient is a 34-year-old male with a history of anxiety, bipolar disorder, and schizophrenia who presented to the ED complaining of being anxious and agitated. Patient stated that he has been "walking for 3 days and 3 nights." He denies any alcohol use tonight. However he does report smoking marijuana today and thinks that this marijuana and that "cigarettes [he] smoked off the ground" were laced with a drug. Patient admitted to auditory hallucination and stated that he is unable to control these voices and that they will speak through his mouth. Assessment What has happened this shift: RN received pt. asleep at start of shift. Pt. awake for breakfast. Pt. ate all meals in the community room. Pt. took all medications except for Haldol. Pt. reports Haldol makes him itchy, RN informed provider. Pt. refused physical and 1:1 assessments. Pt. got into verbal altercation with his roommate, swearing and posturing. Pt. given Xanax 2mg PRN with good effect. S/I, H/I: Refused assessment A/VH: Refused assessment but appears to be responding to voices. Sleep: Napped intermittently throughout the day. ADL's: Independent. Needs prompting. Group attendance: No. Were meds taken: All except Haldol. Any med S/E: Denies Mental Status Exam Appearance: Disheveled, unshaven, wearing street clothes. Eye contact: Fair. Behavior: Isolates to his room sitting at his window. Pacing sometimes in the hallway. Speech: Quiet and guarded. Mood: Labile. Easily agitated. Affect: Flat/blunted. Thought process: Unable to assess Thought Content: Unable to assess. Cognition: Alert. Insight: Poor Judgment: Poor Interventions PRN's used: Xanax. Therapeutic interventions: Ensured contract for safety, maintained a safe and supportive environment, provided clear and simple instructions, monitored behavior and need for intervention, provided redirection and de-escalation as needed, and maintained Q 15min safety checks. Restraints/seclusion/emergency medication: N/A
[2020-08-20 19:15] VITALS: BP 122/68
[2020-08-20] MEDS: haloperidol 5mg tablet PO PRN ×2 (21:38→21:42)
--- NOTE | 2020-08-20 23:38 | NUR ---
Nursing Progress Note: Legal hold: 5250 Client on involuntary status for GD Report received from LYNN Peralta with use of SBAR. Why are they here: Patient is a 34-year-old male with a history of anxiety, bipolar disorder, and schizophrenia who presented to the ED complaining of being anxious and agitated. Patient stated that he has been "walking for 3 days and 3 nights." He denies any alcohol use tonight. However he does report smoking marijuana today and thinks that this marijuana and that "cigarettes [he] smoked off the ground" were laced with a drug. Patient admitted to auditory hallucination and stated that he is unable to control these voices and that they will speak through his mouth. Assessment What has happened this shift: Pt was laying in bed resting at change of shift. Pt was up for snack and requested meds, pt took all scheduled meds. Later in the evening pt began screaming and asked for meds, prn haldol and xanax. were attempted but pt picked the haldol out of the cup and declined it stating "it makes me itchy." Reminded patient he had taken haldol with earlier scheduled meds and he replied, "I pretended to take it but spit it out in the garbage." I asked which garbage in order to retrieve it, and pt states "I spit it in the toilet instead." Pt was quiet after taking prn xanaxm but remained awake walking in the huff at times, but mostly isolated to his room. S/I, H/I: Refused assessment A/VH: Refused assessment but appears to be responding to voices. Sleep: Napped intermittently see sleep hours ADL's: Independent. Needs prompting. Group attendance: No. Were meds taken: pt states he pretended to take scheduled haldol but states he spit it out later Any med S/E: Denies Mental Status Exam Appearance: Disheveled, unshaven, wearing street clothes. Eye contact: Fair. Behavior: Isolates to his room Pacing sometimes in the hallway. Speech: Quiet and guarded. Mood: Labile. Affect: Flat/blunted. Thought process: Unable to assess Thought Content: talking to himself Cognition: Alert. Insight: Poor Judgment: Poor Interventions PRN's used: Xanax. Therapeutic interventions: Ensured contract for safety, maintained a safe and supportive environment, provided clear and simple instructions, monitored behavior and need for intervention, provided redirection and de-escalation as needed, and maintained Q 15min safety checks. Restraints/seclusion/emergency medication: N/A
[2020-08-21 08:00] VITALS: BP 123/60
[2020-08-21] MEDS: haloperidol 5mg tablet PO SCH ×4 (08:00→21:00)
[2020-08-21] MEDS: ALPRAZolam 0.5mg tablet PO SCH ×4 (08:10→20:25)
[2020-08-21] MEDS: divalproex sodium 500mg tablet.DR PO SCH ×2 (08:10→20:26)
[2020-08-21] MEDS: lithium carbonate 150mg capsule PO SCH ×2 (08:10→20:26)
[2020-08-21] MEDS: NICOTINE POLACRILEX 2 MG LOZENGE BC PRN ×3 (09:42→14:35)
--- NOTE | 2020-08-21 13:10 | NUR ---
Nursing Progress Note: Legal hold: 5250 Client on involuntary status for GD Report received from nurse with use of SBAR: LYNN Chaudhary Why are they here: Patient is a 34-year-old male with a history of anxiety, bipolar disorder, and schizophrenia who presented to the ED complaining of being anxious and agitated. Patient stated that he has been "walking for 3 days and 3 nights." He denies any alcohol use tonight. However he does report smoking marijuana today and thinks that this marijuana and that "cigarettes [he] smoked off the ground" were laced with a drug. Patient admitted to auditory hallucination and stated that he is unable to control these voices and that they will speak through his mouth. Assessment What has happened this shift: Received pt. sleeping in bed at the beginning of the shift, he awoke and attended breakfast in the Group Room with some direction from staff. 1:1 completed at bedside, pt. continues to refuse scheduled Haldol reporting that it makes him itch (pt. had been previously taking Haldol with no s/s), endorsed to ULZMA Roldan. Pt. presents with a flat affect and a blank stare and is cooperative with assessment. He denies any S/I or H/I, however when questioned regarding depression or anxiety, pt. endorses these but states dissimilatively, "It's just life." Pt. also reports ongoing A/HOUSE. When questioned further regarding these, he states irritably, "They want to hurt others, I don't want to, but they do." Pt. then reports that these A/HOUSE have been going on for most of his life. Pt. denies any V/HOUSE, but admits that he still has some paranoid delusional thoughts that others want to hurt him. Pt. remains guarded throughout the day, and is observed in his room listening to headphones or talking aloud to himself. He again displays increased anxiety and restlessness as the day wears on, and at approximately 1130 is observed to be rapidly pacing the hallway, scheduled Xanax administered with effectiveness. Pt. continues to refuses to attend groups and remains withdrawn. S/I, H/I: Denies A/VH: Pt. reports ongoing A/HOUSE Sleep: Pt. reports he did not sleep well, however sleep hours are 6.75 ADL's: Requires some direction Group attendance: No Were meds taken: Yes Any med S/E: None Mental Status Exam Appearance: Somewhat disheveled (long scraggly camara), however appropriately dressed and wearing a baseball cap Eye contact: Fair or will stare blankly Behavior: Cooperative, anxious, restless, impulsive, guarded, and withdrawn Speech: Mumbled and difficult to understand at times, pressured and loud when agitated Mood: Restless and withdrawn Affect: Labile Thought process: Poverty of thought with possible thought blocking Thought Content: A/HOUSE and paranoid delusions Cognition: A&O X2 Insight: Poor Judgment: Poor Interventions PRN's used: Nicotine Lozenge Therapeutic interventions: Ensured contract for safety, maintained a safe and supportive environment, provided clear and simple instructions, monitored behavior and need for intervention, provided redirection and de-escalation as needed , and maintained Q 15min safety checks. Restraints/seclusion/emergency medication: N/A Justification of Continued Inpatient Treatment: LUZMA Cabrales, pt. continues to exhibit schizoaffective D/O despite medications. He continues to require a safe and supportive environment at this time.
[2020-08-21 19:37] VITALS: BP 117/75
--- NOTE | 2020-08-22 04:38 | NUR ---
Nursing Progress Note: Legal hold: 5250 Client on involuntary status for GD Report received from nurse with use of SBAR: LYNN Chaudhary Why are they here: Patient is a 34-year-old male with a history of anxiety, bipolar disorder, and schizophrenia who presented to the ED complaining of being anxious and agitated. Patient stated that he has been "walking for 3 days and 3 nights." He denies any alcohol use tonight. However he does report smoking marijuana today and thinks that this marijuana and that "cigarettes [he] smoked off the ground" were laced with a drug. Patient admitted to auditory hallucination and stated that he is unable to control these voices and that they will speak through his mouth. Assessment What has happened this shift: Pt was laying in bed sleeping at change of shift. Pt woke and attended evening snack and returned to his room and removed all of his clothing. I asked patient if he wanted to wear scrubs and he explained he wanted to wear his clothes but his room is too hot. Adjusted temp in his room. Pt states he had a good day and states he didnt go to groups because they "confuse" him. Pt appears to be responding to IS and states "whoa! I love your shoes! and then continues to stare at my shoes for some time during med pass. S/I, H/I: Denies A/VH: Pt. reports ongoing A/HOUSE Sleep: see sleep hours ADL's: Requires some direction Group attendance: No Were meds taken: Yes Any med S/E: None Mental Status Exam Appearance: Somewhat disheveled (long scraggly camara), however appropriately dressed and wearing a baseball cap Eye contact: Fair or will stare blankly Behavior: Cooperative, anxious, restless, impulsive, guarded, and withdrawn Speech: Mumbled and difficult to understand at times, pressured and loud when agitated Mood: Restless and withdrawn Affect: Labile Thought process: Poverty of thought Thought Content: A/HOUSE and paranoid delusions Cognition: A&O X2 Insight: Poor Judgment: Poor Interventions PRN's used: Nicotine Lozenge Therapeutic interventions: Ensured contract for safety, maintained a safe and supportive environment, provided clear and simple instructions, monitored behavior and need for intervention, provided redirection and de-escalation as needed , and maintained Q 15min safety checks. Restraints/seclusion/emergency medication: N/A Justification of Continued Inpatient Treatment: LUZMA Cabrales, pt. continues to exhibit schizoaffective D/O despite medications. He continues to require a safe and supportive environment at this time Addendum: 08/22/20 at 0458 by Renata Hopson RN Pt picked out his haldol from his med cup and took all other meds before going back to sleep. Continues to report haldol makes him itch.
[2020-08-22] MEDS: haloperidol 5mg tablet PO SCH ×5 (08:00→21:00)
[2020-08-22 08:20] VITALS: BP 112/60
[2020-08-22] MEDS: lithium carbonate 150mg capsule PO SCH ×2 (08:41→20:09)
[2020-08-22] MEDS: divalproex sodium 500mg tablet.DR PO SCH ×2 (08:42→20:09)
[2020-08-22] MEDS: ALPRAZolam 0.5mg tablet PO SCH ×4 (08:42→20:09)
--- NOTE | 2020-08-22 16:32 | NUR ---
Nursing Progress Note: Legal hold: 5250 Expires 08/23 Client on involuntary status for GD Report received from nurse with use of SBAR: LYNN Chaudhary Why are they here: Patient is a 34-year-old male with a history of anxiety, bipolar disorder, and schizophrenia who presented to the ED complaining of being anxious and agitated. Patient stated that he has been "walking for 3 days and 3 nights." He denies any alcohol use tonight. However he does report smoking marijuana today and thinks that this marijuana and that "cigarettes [he] smoked off the ground" were laced with a drug. Patient admitted to auditory hallucination and stated that he is unable to control these voices and that they will speak through his mouth. Assessment What has happened this shift: Received patient sleeping at shift change no distress noted. Pt woke prior to breakfast and requested to shower. Patient attended breakfast without incident. Pt took all medication except for scheduled Haldol. Pt states Haldol makes me itch. Pt has been taking medication up until 08/21 with no side effects. Pt was cooperative with care and during 1:1 pt says to this automatic typewriter inspector you saved my life once. I had 4 heart attacks at once. Pt then stated I have a strong heart. I went on a 3 day-3night walk in all the sectors. There was an evil sector where Satan was and all these hands tried to pull me in the bushes. I didnt like that. Pt spends most of his time in his room listening to headphones or talking aloud to himself. Pt receives scheduled Xanax 3 times on this shift, effective with each administration. Pt continues to endorse A/VH. They are there and sometimes they want to hurt staff, but I wont let them. Pt had one outburst, thought another patient was talking about him. Pt received his scheduled Xanax with effect. Pt observed sitting in his room talking to self, or watching TV in rec room. S/I, H/I: Denies both A/VH: Pt. reports ongoing A/HOUSE Sleep: 9.25 hours per Sleep Assessment. Pt reports not sleeping well. ADL's: Requires some direction. Pt showered today. Group attendance: No Were meds taken: Yes, except pt refused PO Haldol. States it makes him itch. Any med S/E: None observed or reported. Mental Status Exam Appearance: Somewhat disheveled (long scraggly camara), however appropriately dressed in personal attire and wearing a baseball cap. Eye contact: Fair or will stare blankly Behavior: Cooperative, anxious, restless, impulsive, guarded, and withdrawn Speech: Mumbled and difficult to understand at times, pressured and loud when agitated Mood: Restless and withdrawn Affect: Labile Thought process: Poverty of thought with possible thought blocking Thought Content: A/HOUSE and paranoid delusions Cognition: A&O X2 Insight: Poor Judgment: Poor Interventions PRN's used: None Therapeutic interventions: Ensured contract for safety, maintained a safe and supportive environment, provided clear and simple instructions, monitored behavior and need for intervention, provided redirection and de-escalation as needed , and maintained Q 15min safety checks. Restraints/seclusion/emergency medication: N/A Justification of Continued Inpatient Treatment: Wade Roldan PA, pt. continues to exhibit schizoaffective D/O despite medications. He continues to require a safe and supportive environment at this time.
[2020-08-22 19:41] VITALS: BP 121/74
[2020-08-22] MEDS: NICOTINE POLACRILEX 2 MG LOZENGE BC PRN (21:04)
--- NOTE | 2020-08-22 21:13 | NUR ---
Nursing Progress Note: Legal hold: 5250 Expires 08/23 Client on involuntary status for GD Report received from nurse with use of SBAR: LYNN Chaudhary Why are they here: Patient is a 34-year-old male with a history of anxiety, bipolar disorder, and schizophrenia who presented to the ED complaining of being anxious and agitated. Patient stated that he has been "walking for 3 days and 3 nights." He denies any alcohol use tonight. However he does report smoking marijuana today and thinks that this marijuana and that "cigarettes [he] smoked off the ground" were laced with a drug. Patient admitted to auditory hallucination and stated that he is unable to control these voices and that they will speak through his mouth. Assessment What has happened this shift: Pt spent evening sitting in rec room watching movies. He was laughing hysterically at one point and states this is the funniest movie I've ever seen. None of the other patients were laughing. pt states hes having a good day and states hes "leaving soon" so he's happy about that. pt continues to decline haldol asking me to remove it from his med cup because it makes him itch. pt is pleasant and cooperative, smiling laughing and states his meds are working. S/I, H/I: Denies both A/VH: Pt denies but appears to be RIS Sleep: see sleep hours ADL's: Requires some direction. Group attendance: No Were meds taken: Yes, except pt refused PO Haldol. States it makes him itch. Any med S/E: None observed or reported. Mental Status Exam Appearance: Somewhat disheveled (long scraggly camara), however appropriately dressed in personal attire and wearing a baseball cap. Eye contact: Fair or will stare blankly Behavior: Cooperative, anxious, restless, impulsive, guarded, and withdrawn Speech: Mumbled and difficult to understand at times Mood: Restless and withdrawn Affect: Labile Thought process: Poverty of thought with possible thought blocking Thought Content: talking about discharge and telling me about the movie he is watching Cognition: A&O X2 Insight: Poor Judgment: Poor Interventions PRN's used: None Therapeutic interventions: Ensured contract for safety, maintained a safe and supportive environment, provided clear and simple instructions, monitored behavior and need for intervention, provided redirection and de-escalation as needed , and maintained Q 15min safety checks. Restraints/seclusion/emergency medication: N/A Justification of Continued Inpatient Treatment: LUZMA Cabrales, pt. continues to exhibit schizoaffective D/O despite medications. He continues to require a safe and supportive environment at this time.
[2020-08-23] MEDS: ALPRAZolam 0.5mg tablet PO PRN ×2 (00:19→15:28)
[2020-08-23 07:32] VITALS: BP 136/73
[2020-08-23] MEDS: divalproex sodium 500mg tablet.DR PO SCH (07:40)
[2020-08-23] MEDS: ALPRAZolam 0.5mg tablet PO SCH ×2 (07:41→12:41)
[2020-08-23] MEDS: lithium carbonate 150mg capsule PO SCH (07:41)
[2020-08-23] MEDS: haloperidol 5mg tablet PO SCH ×2 (07:41→12:00)
[2020-08-23] MEDS ORDERED: HALO5TAB PO (11:00)
[2020-08-23] MEDS ORDERED: LIT300C PO (11:00)
[2020-08-23] MEDS ORDERED: PALI156D IM (11:00)
[2020-08-23] MEDS ORDERED: ALPR0.5T8 PO (11:00)
[2020-08-23] MEDS ORDERED: NICO-668 BC (11:00)
[2020-08-23] MEDS ORDERED: DIVA500T2 PO (11:00)
[2020-08-23] MEDS: NICOTINE POLACRILEX 2 MG LOZENGE BC PRN (12:03)
--- NOTE | 2020-08-23 12:38 | NUR ---
Reassessment: Pt PO 75-100% avg regular diet meeting needs. Last BM 08/23. No nutrition concerns at this time. Will continue to monitor. Recommendations: 1) Continue regular diet 2) Bowel care per rx 3) Scaled weights per rx Addendum: 08/23/20 at [address] Amended: Links added.
--- NOTE | 2020-08-23 15:18 | NUR ---
Picked up Pearl medjeremiah at [facility] on [address] for admittance to [facility]. Total= $3.75. Parasitologist will get reimbursed from [facility] [employer]. ANIL Rodriguez
--- NOTE | 2020-08-23 15:40 | NUR ---
DISCHARGE NOTE: Patient was discharged to [facility] and left unit at 1530. Patient was escorted to lobby with pick up driver from [facility] with all personal belongings. Pt tells this conventional mortgage underwriter I am listening to the good voices. I am so happy that I am leaving. Pt is alert and was slightly anxious and requested a PRN Xanax which was effective.
== END 2020-08-23 15:30 | disposition home or self-care (01) | DRG 885 ==
LOC: ADULT MH 16:20
PROVIDERS: ADMIT Psychiatry & Neurology Psychiatry; ATTEND Psychiatry & Neurology Psychiatry
DX: F25.0 Schizoaffective disorder, bipolar type (principal); E11.9 Type 2 diabetes mellitus without complications; F17.210 Nicotine dependence, cigarettes, uncomplicated; F41.9 Anxiety disorder, unspecified; G40.909 Epilepsy, unspecified, not intractable, without status epilepticus; I10 Essential (primary) hypertension; K21.9 Gastro-esophageal reflux disease without esophagitis; Z79.899 Other long term (current) drug therapy; Z88.0 Allergy status to penicillin; Z91.14 Patient's other noncompliance with medication regimen; Z91.19 Patient's noncompliance with other medical treatment and regimen
CPT/HCPCS: 36415; 80053; 80061; 80178; 80305; 80320; 81001; 83036; 85025; 87081; J1200; J1630; J2060

== ENCOUNTER 2020-09-12 11:44 | Emergency (ER) | payer MEDICARE, MEDICAID ==
[~2020-09-12] VITALS: Ht 175.3 cm; Wt 110.0 kg
[~2020-09-12 11:44] MED LIST changes: +ALPR0.5T8 PO; -CLON-527 PO; +HALO5TAB PO; +LIT300C PO; -LITH150C8 PO; +NICO-668 BC; +PALI156D IM; -QUET25TA PO
[2020-09-12 12:25] LABS: BASOPHILS % (AUTO) 0.4 % (0-1); EOSINOPHILS % (AUTO) 0.7 % (0-6); HEMATOCRIT 43.6 % (42.0-52.0); HEMOGLOBIN 14.3 g/dl (14.0-17.9); LYMPHOCYTES # (AUTO) 1.9 X10'3 (1.1-4.8); LYMPHOCYTES % (AUTO) 28.6 % (21-51); MEAN CORPUSCULAR HEMOGLOBIN 28.6 PG (27.0-31.0); MEAN CORPUSCULAR HGB CONC 32.7 g/dL (33.0-36.5); MEAN CORPUSCULAR VOLUME 87.3 FL (78-98); MEAN PLATELET VOLUME 8.7 FL (7.4-10.4); MONOCYTES # (AUTO) 0.4 X10'3 (0-0.9); MONOCYTES % (AUTO) 6.6 % (2-12); NEUTROPHILS # (AUTO) 4.2 X10'3 (1.8-7.7); NEUTROPHILS % (AUTO) 63.7 % (42-75); PLATELET COUNT 227 X10'3 (140-440); RED BLOOD COUNT 4.99 X10'6 (4.70-6.10); RED CELL DISTRIBUTION WIDTH 15.1 % (11.5-14.5); WHITE BLOOD COUNT 6.6 X10'3 (4.5-11.0)
[2020-09-12] MEDS ORDERED: QUET50TA PO (12:31)
[2020-09-12] MEDS ORDERED: LIT300C PO (12:32)
[2020-09-12] MEDS ORDERED: PALI156D IM (12:32)
[2020-09-12 12:48] LABS: CLARITY,URINE CLEAR (Clear); COLOR,URINE YELLOW (Yellow); GLUCOSE, URINE NEGATIVE (Neg); KETONES,URINE NEGATIVE (Neg); LEUKOCYTE ESTERASE ,URINE NEGATIVE (Neg); NITRITES, URINE NEGATIVE (Neg); OCCULT BLOOD,URINE NEGATIVE (Neg); PH,URINE 7.5 (4.8-8.0); PROTEIN,URINE NEGATIVE (Neg); UROBILINOGEN,URINE 0.2 E.U/dL (0.2-1.0)
[2020-09-12 12:49] LABS: ALANINE AMINOTRANSFERASE 17 U/L (12-78); ALBUMIN 3.8 G/DL (3.4-5.0); ALBUMIN/GLOBULIN RATIO 1.1 (1.1-1.5); ALKALINE PHOSPHATASE 51 IU/L (46-116); ANION GAP 10 (8-16); ASPARTATE AMINO TRANSFERASE 13 U/L (10-37); BILIRUBIN,TOTAL 0.4 MG/DL (0.1-1.0); BLOOD UREA NITROGEN 4 MG/DL (7-18); BUN/CREATININE RATIO 5.2 (5.4-32.0); CALCIUM 8.7 MG/DL (8.5-10.1); CHLORIDE 106 MMOL/L (99-107); CREATININE 0.77 MG/DL (0.60-1.10); ETHANOL < 0.010 GM/DL (0.0-0.010); GLUCOSE 91 MG/DL (70-104); SODIUM 141 MMOL/L (135-145); TOTAL CARBON DIOXIDE 24.6 MMOL/L (24-32); TOTAL PROTEIN 7.3 G/DL (6.4-8.2); eGFR > 90 ML/MIN
[2020-09-12 12:49] LABS: UA COLLECTION TYPE CLN CATCH MIDSTREAM
[2020-09-12 13:03] LABS: URINE AMPHETAMINE SCREEN NEGATIVE (Neg); URINE BARBITUATE SCREEN NEGATIVE (Neg); URINE BENZODIAZEPINES SCREEN NEGATIVE (Neg); URINE CANNABINOID SCREEN POSITIVE (Neg); URINE COCAINE SCREEN NEGATIVE (Neg); URINE METHADONE SCREEN NEGATIVE (Neg); URINE OPIATE SCREEN NEGATIVE (Neg); URINE PHENCYCLIDINE SCREEN NEGATIVE (Neg)
--- NOTE | 2020-09-12 13:30 | NUR ---
pt taken to overflow 20
[2020-09-12] MEDS ORDERED: paliperidone palmitate 156 mg/ml inj.**IM only IM SCH (13:35)
--- NOTE | 2020-09-12 14:30 | NUR ---
pt is resting. no concerns at this time
--- NOTE | 2020-09-12 16:00 | NUR ---
pt is resting in his room no issues
--- NOTE | 2020-09-12 17:14 | NUR ---
pt is talking to himself. pt hears voices and has fully conservations with him often
--- NOTE | 2020-09-12 17:54 | NUR ---
pt is resting
--- NOTE | 2020-09-12 18:55 | NUR ---
Patient requesting medications, advised they were written for 8 pm
[2020-09-12] MEDS ORDERED: divalproex sodium 500mg tablet.DR PO SCH (20:00)
[2020-09-12] MEDS ORDERED: QUEtiapine 25mg tablet PO SCH (20:00)
[2020-09-12] MEDS ORDERED: lithium carbonate 300mg SR tablet (LithoBID) PO SCH (20:00)
[2020-09-12 21:53] VITALS: BP 123/72
--- NOTE | 2020-09-12 21:57 | NUR ---
report to Neena to assume patient care after discharge
== END 2020-09-12 21:56 ==
LOC: ER 11:45
DX: F25.9 Schizoaffective disorder, unspecified (principal); F29 Unspecified psychosis not due to a substance or known physiological condition; R45.851 Suicidal ideations; Z88.0 Allergy status to penicillin; Z79.899 Other long term (current) drug therapy
CPT/HCPCS: 36415; 80053; 80164; 80178; 80305; 80320; 81003; 84443; 85025; 96372; 99285